=== PATIENT | female | born 1955 | race African-American/Black ===

== ENCOUNTER 2018-02-11 12:20 | Inpatient (IN) | payer MEDICARE, MEDICAID ==
[2018-02-11] MEDS ORDERED: NORMAL SALINE 1000 ML 1,000 ML IV ONE (13:06)
[2018-02-11] MEDS ORDERED: ONDANSETRON HCL INJ/PF 4 MG/2 ML SDV IV ONE (13:06)
[2018-02-11] MEDS ORDERED: FENTANYL CITRATE INJ/PF 100 MCG/2 ML AMPUL IV ONE (13:06)
--- NOTE | 2018-02-11 13:10 | ER Document Report ---
ED Medical Screen (RME) - General Chief Complaint: Nausea/Vomiting Stated Complaint: VOMITING, NAUSEA Time Seen by Provider: 02/11/18 13:01 Notes: RAPID MEDICAL EVALUATION DISCLOSURE I have seen this patient as part of a Rapid Medical Evaluation and, if applicable, placed any initially appropriate orders. The patient will be seen and fully evaluated, including a full history and physical exam, by a provider ( in Main ED or Fast Track) when a room becomes available. 62-year-old female PMH hiatal hernia status post Jigna fundoplication with subsequent revisions several years ago as well as recent upper endoscopy (with esophageal dilatation and findings of Schatzki ring by [facility] in [place]) here with complaints of diffuse abdominal pain nausea vomiting diarrhea over the past 1 week. She has been unable to keep anything down. She is also had chest pain (worse with exertion, improved with laying flat) shortness of breath that has been ongoing for many many years and is unchanged from baseline. Denies any prior history of bowel obstruction. EXAM CTAB Moderately tachycardic, regular rhythm Diffuse moderate TTP all quadrants No rigidity distention TRAVEL OUTSIDE OF THE [place] IN LAST 30 DAYS: No Past Medical History - Social History Chew tobacco use (# tins/day): No Frequency of alcohol use: None Drug Abuse: None - Past Medical History Cardiac Medical History: Reports: Hx Hypertension Neurological Medical History: Reports: Hx Migraine, Hx Seizures Renal/ Medical History: Denies: Hx Peritoneal Dialysis Past Surgical History: Reports: Hx Abdominal Surgery Physical Exam - Vital signs Vitals: Temp Pulse Resp BP Pulse Ox 97.8 F 139 H 28 H 107/74 96 02/11/18 12:28 02/11/18 12:28 02/11/18 12:28 02/11/18 12:28 02/11/18 12:28 Course - Vital Signs Vital signs: Temp Pulse Resp BP Pulse Ox 97.8 F 139 H 28 H 107/74 96 02/11/18 12:28 02/11/18 12:28 02/11/18 12:28 02/11/18 12:28 02/11/18 12:28
[2018-02-11] MEDS ORDERED: PROMETHAZINE HCL INJ 25 MG/1 ML VIAL ONE (13:37)
[2018-02-11 13:52] LABS: ABSOLUTE LYMPHOCYTES (AUTO) 1.3 10^3/uL (0.5-4.7); ABSOLUTE MONOCYTES (AUTO) 0.5 10^3/uL (0.1-1.4); ABSOLUTE NEUT (AUTO) 2.8 10^3/uL (1.7-8.2); BASOPHILS % (AUTO) 0.7 % (0-2); EOSINOPHILS % (AUTO) 0.3 % (0-6); HEMATOCRIT 46.2 % (36.0-47.0); HEMOGLOBIN 16.1 g/dL (12.0-15.5); LYMPHOCYTES % (AUTO) 28.5 % (13-45); MEAN CORPUSCULAR HEMOGLOBIN 29.2 pg (27.0-33.4); MEAN CORPUSCULAR HGB CONC 34.8 g/dL (32.0-36.0); MEAN CORPUSCULAR VOLUME 84 fl (80-97); MONOCYTES % (AUTO) 10.6 % (3-13); PLATELET COUNT 325 10^3/uL (150-450); RED CELL DISTRIBUTION WIDTH 16.1 % (11.5-14.0); SEGMENTED NEUTROPHILS % (AUTO) 59.9 % (42-78); TOTAL CELLS COUNTED % (AUTO) 100 %; WHITE BLOOD COUNT 4.7 10^3/uL (4.0-10.5)
[2018-02-11] MEDS ORDERED: PROMETHAZINE HCL INJ 50 MG/1 ML VIAL IM ONE (13:52)
[2018-02-11] MEDS ORDERED: HYDROMORPHONE HCL INJ/PF 2 MG/ML AMPULE IV ONE ×2 (14:08→18:54)
[2018-02-11] MEDS ORDERED: METOCLOPRAMIDE HCL INJ/PF 10 MG/2 ML SDV IV ONE ×2 (14:08→19:05)
[2018-02-11 14:43] LABS: APPEARANCE,URINE SLIGHTLY-CLOUDY; BILIRUBIN,URINE NEGATIVE (NEGATIVE); COLOR,URINE YELLOW; GLUCOSE, URINE NEGATIVE (NEGATIVE); KETONES,URINE NEGATIVE (NEGATIVE); LEUKOCYTE ESTERASE,URINE MODERATE (NEGATIVE); NITRITE,URINE NEGATIVE (NEGATIVE); PROTEIN,URINE NEGATIVE (NEGATIVE); URINE SPECIFIC GRAVITY 1.012; UROBILINOGEN,URINE NEGATIVE mg/dL (<2.0)
[2018-02-11] MEDS ORDERED: CEFTRIAXONE INJ 1000 MG VIAL IV ONE (14:46)
[2018-02-11 16:19] LABS: ALANINE AMINOTRANSFERASE 17 U/L (9-52); ALBUMIN 3.8 g/dL (3.5-5.0); ALKALINE PHOSPHATASE 57 U/L (38-126); ANION GAP 14 (5-19); ASPARTATE AMINO TRANSFERASE 21 U/L (14-36); BILIRUBIN,DIRECT 0.4 mg/dL (0.0-0.4); BILIRUBIN,TOTAL 0.6 mg/dL (0.2-1.3); BLOOD UREA NITROGEN 37 mg/dL (7-20); CALCIUM 9.6 mg/dL (8.4-10.2); CARBON DIOXIDE 25 mmol/L (22-30); CHLORIDE 106 mmol/L (98-107); GLUCOSE 89 mg/dL (75-110); LIPASE 335.6 U/L (23-300); POTASSIUM 4.1 mmol/L (3.6-5.0); SODIUM 145.2 mmol/L (137-145); TOTAL PROTEIN 6.7 g/dL (6.3-8.2)
--- NOTE | 2018-02-11 17:23 | RADIOLOGY REPORT (SQ) ---
EXAM DESCRIPTION: CT HEAD WITHOUT COMPLETED DATE/TIME: 02/11/2018 5:07 pm REASON FOR STUDY: headache COMPARISON: None. TECHNIQUE: Axial images acquired through the brain without intravenous contrast. Images reviewed wi th bone, brain and subdural windows. Images stored on PACS. All CT scanners at this facility use dose modulation, iterative reconstruction, and/or weight based d osing when appropriate to reduce radiation dose to as low as reasonably achievable (ALARA). [facility]: Dose Right [facility]: CareDose [facility]: Dose Right [facility]: Teradose 4D [facility]: Enjoyor RADIATION DOSE: mGy. LIMITATIONS: None. FINDINGS: VENTRICLES: Normal size and contour. CEREBRUM: No masses. No hemorrhage. No midline shift. No evidence for acute infarction. Normal gra y/white matter differentiation. No areas of low density in the white matter. CEREBELLUM: No masses. No hemorrhage. No alteration of density. No evidence for acute infarction. EXTRAAXIAL SPACES: No fluid collections. No masses. ORBITS AND GLOBE: No intra- or extraconal masses. Normal contour of globe without masses. CALVARIUM: No fracture. PARANASAL SINUSES: No fluid or mucosal thickening. SOFT TISSUES: No mass or hematoma. OTHER: No other significant finding. IMPRESSION: NORMAL BRAIN CT WITHOUT CONTRAST. EVIDENCE OF ACUTE STROKE: NO. COMMENT: Quality ID # [id number]: Final reports with documentation of one or more dose reduction techniques (e.g., Automated exposure control, adjustment of the mA and/or kV according to patient size, use of iterative reconstruction technique) TECHNICAL DOCUMENTATION: JOB ID: [id number] [employer]- All Rights Reserved Reading location - IP/workstation name: [email or web address]
--- NOTE | 2018-02-11 17:38 | RADIOLOGY REPORT (SQ) ---
EXAM DESCRIPTION: CT ABD/PELVIS WITH IV ORAL COMPLETED DATE/TIME: 02/11/2018 5:14 pm REASON FOR STUDY: n/v/d abd pain; eval obstruction colitis etc COMPARISON: None. TECHNIQUE: CT scan of the abdomen and pelvis performed using helical scanning technique with dynamic intravenous contrast injection. No oral contrast. Images reviewed with lung, soft tissue, and bone windows. Reconstructed coronal and sagittal MPR images reviewed. Delayed images for evaluation of the urinary system also acquired. All images stored on PACS. All CT scanners at this facility use dose modulation, iterative reconstruction, and/or weight based d osing when appropriate to reduce radiation dose to as low as reasonably achievable (ALARA). [facility]: Dose Right [facility]: CareDose [facility]: Dose Right [facility]: Teradose 4D [facility]: [employer] CONTRAST TYPE AND DOSE: 46 mL Isovue 370 RENAL FUNCTION: Creatinine 1.44 RADIATION DOSE: . LIMITATIONS: None. FINDINGS: LOWER CHEST: There is some mild thickening of the pericardium which I cannot exclude is a small pericardial effusion. No nodules or infiltrates. Radiopaque density is identified at the the G E junction and I am uncertain as to whether this or related to previous surgery or represents an bakari sted substance. LIVER: Normal size. No masses. Prominent intrahepatic bile ducts are identified presumably related t o the patient being in post cholecystectomy. SPLEEN: Normal size. No focal lesions. PANCREAS: No masses. No significant calcifications. No adjacent inflammation or peripancreatic fluid collections. Pancreatic duct not dilated. GALLBLADDER: Status post cholecystectomy. ADRENAL GLANDS: No significant masses or asymmetry. RIGHT KIDNEY AND URETER: No solid masses. No significant calcifications. No hydronephrosis or hyd roureter. LEFT KIDNEY AND URETER: No solid masses. No significant calcifications. No hydronephrosis or hydr oureter. AORTA AND VESSELS: No aneurysm. No dissection. Renal arteries, SMA, celiac without stenosis. RETROPERITONEUM: No retroperitoneal adenopathy, hemorrhage or masses. BOWEL AND PERITONEAL CAVITY: There is some thickening of the longoria of the colon extending from the le hanane of the splenic flexure to the rectum which may be in part related to its non distended state spears carla the possibility of a colitis should be considered. No free fluid or peritoneal masses. APPENDIX: Status post appendectomy PELVIS: No mass. No free fluid. Normal bladder. ABDOMINAL WALL: No masses. No hernias. BONES: No significant or acute findings. OTHER: No other significant finding. IMPRESSION: There is thickening of the longoria of the colon extending from the level of the splenic fl exure to the level of the rectum which may be in part related to its non distended state however the possibility of a colitis should be considered. Other findings as noted above TECHNICAL DOCUMENTATION: JOB ID: [id number] Quality ID # [id number]: Final reports with documentation of one or more dose reduction techniques (e.g., Au tomated exposure control, adjustment of the mA and/or kV according to patient size, use of iterative reconstruction technique) 2010 [employer]- All Rights Reserved Reading location - IP/workstation name: [email or web address]
[2018-02-11] MEDS ORDERED: CIPROFLOXACIN 200 MG/D5W RTU 200 MG/100 ML RTUPB IV ONE (18:46)
[2018-02-11] MEDS ORDERED: METRONIDAZOLE 500 MG/NS RTU 100 ML IV ONE (18:46)
--- NOTE | 2018-02-11 18:46 | ER Document Report ---
ED General - General Chief Complaint: Nausea/Vomiting Stated Complaint: VOMITING, NAUSEA Time Seen by Provider: 02/11/18 13:01 Mode of Arrival: Ambulatory Information source: Patient Notes: 62-year-old female presents with complaints of nausea vomiting diarrhea. Patient notes decreased oral intake generalized abdominal burning sensation TRAVEL OUTSIDE OF THE [place] IN LAST 30 DAYS: No - HPI Onset: Last week Onset/Duration: Persistent Quality of pain: Burning Severity: Moderate Pain Level: 2 Associated symptoms: Diarrhea, Nausea, Vomiting Exacerbated by: Food Relieved by: Denies Similar symptoms previously: No Recently seen / treated by doctor: No - Related Data Allergies/Adverse Reactions: butorphanol [From Stadol] Allergy (Verified 02/11/18 13:08) Past Medical History - Social History Smoking Status: Current Some Day Smoker Cigarette use (# per day): Yes Chew tobacco use (# tins/day): No Smoking Education Provided: No Frequency of alcohol use: None Drug Abuse: None Family History: Reviewed & Not Pertinent Patient has suicidal ideation: No Patient has homicidal ideation: No - Past Medical History Cardiac Medical History: Reports: Hx Hypertension Neurological Medical History: Reports: Hx Migraine, Hx Seizures Renal/ Medical History: Denies: Hx Peritoneal Dialysis Past Surgical History: Reports: Hx Abdominal Surgery Review of Systems - Review of Systems Notes: REVIEW OF SYSTEMS: CONSTITUTIONAL : Denies fever, chills, or sweats. Denies recent illness. EENT: Denies eye, ear, throat, or mouth pain or symptoms. Denies nasal or sinus congestion or discharge. Denies throat, tongue, or mouth swelling or difficulty swallowing. CARDIOVASCULAR: Denies chest pain. Denies palpitations or racing or irregular heart beat. Denies ankle edema. RESPIRATORY: Denies cough, cold, or chest congestion. Denies shortness of breath, difficulty breathing, or wheezing. GASTROINTESTINAL: Admits to abdominal pain nausea vomiting diarrhea GENITOURINARY: Denies difficulty urinating, painful urination, burning, frequency, blood in urine, or discharge. FEMALE GENITOURINARY: Denies vaginal bleeding, heavy or abnormal periods, irregular periods. Denies vaginal discharge or odor. MUSCULOSKELETAL: Denies back or neck pain or stiffness. Denies joint pain or swelling. SKIN: Denies rash, lesions or sores. HEMATOLOGIC : Denies easy bruising or bleeding. LYMPHATIC: Denies swollen, enlarged glands. NEUROLOGICAL: Denies confusion or altered mental status. Denies passing out or loss of consciousness. Denies dizziness or lightheadedness. Denies headache. Denies weakness or paralysis or loss of use of either side. Denies problems with gait or speech. Denies sensory loss, numbness, or tingling. Denies seizures. PSYCHIATRIC: Denies anxiety or stress. Denies depression, suicidal ideation, or homicidal ideation. ALL OTHER SYSTEMS REVIEWED AND NEGATIVE. PHYSICAL EXAMINATION: GENERAL: Cachectic female HEAD: Atraumatic, normocephalic. EYES: Pupils equal round and reactive to light, extraocular movements intact, conjunctiva are normal. ENT: Nares patent, oropharynx clear without exudates. Moist mucous membranes. NECK: Normal range of motion, supple without lymphadenopathy LUNGS: Breath sounds clear to auscultation bilaterally and equal. No wheezes rales or rhonchi. HEART: Tachycardic ABDOMEN: Soft, generalized tenderness Female : deferred Musculoskeletal: Normal range of motion, no pitting or edema. No cyanosis. NEUROLOGICAL: Cranial nerves grossly intact. Normal speech, normal gait. Normal sensory, motor exams PSYCH: Normal mood, normal affect. SKIN: Warm, Dry, normal turgor, no rashes or lesions noted. Dictation was performed using [employer] voice recognition software Physical Exam - Vital signs Vitals: Temp Pulse Resp BP Pulse Ox 97.8 F 139 H 28 H 107/74 96 02/11/18 12:28 02/11/18 12:28 02/11/18 12:28 02/11/18 12:28 02/11/18 12:28 Course - Re-evaluation Re-evalutation: 02/11/18 19:13 Patient's presentation is most consistent with colitis, she was quite tachycardic initially with IV fluids tachycardia resolved. Repeat vital signs noted she was normotensive, and overall well-appearing. Patient was given IV antibiotics initially for a UTI but CT abdomen pelvis with oral and IV contrast does note colitis therefore patient will be started on Cipro and Flagyl as well - Vital Signs Vital signs: Temp Pulse Resp BP Pulse Ox 97.8 F 139 H 16 118/91 H 98 02/11/18 12:28 02/11/18 12:28 02/11/18 14:01 02/11/18 14:01 02/11/18 14:01 - Laboratory Result Diagrams: 02/11/18 13:42 02/11/18 15:40 Laboratory results interpreted by me: 02/11/18 02/11/18 02/11/18 12:35 13:42 15:40 RBC 5.50 H Hgb 16.1 H RDW 16.1 H Sodium 145.2 H BUN 37 H Creatinine 1.44 H Est GFR ( Amer) 44 L Est GFR (Non-Af Amer) 37 L Lipase 335.6 H Urine Blood LARGE H Ur Leukocyte Esterase MODERATE H Critical Care Note - Critical Care Note Total time excluding time spent on procedures (mins): 45 Comments: 45 minutes of critical care time spent in direct contact evaluating and reevaluating the patient, treating symptoms, reviewing labs and studies and speaking with family and consultants excluding any procedures Discharge - Discharge Clinical Impression: Colitis, Dehydration Sepsis Qualifiers: Sepsis type: sepsis due to unspecified organism Qualified Code(s): A41.9 - Sepsis, unspecified organism Condition: Fair Disposition: ADMITTED INPATIENT Admitting Provider: [facility] Unit Admitted: Medical Floor Referrals: GRAEME BULLOCK MD [Primary Care Provider] - Follow up as needed
--- NOTE | 2018-02-11 21:12 | EKG REPORT ---
SEVERITY:- ABNORMAL ECG - SINUS TACHYCARDIA PROBABLE LVH WITH SECONDARY REPOL ABNRM : Confirmed by: Marixa Puentes 11-Feb-2018 21:11:19
[2018-02-11] MEDS ORDERED: (PENDING PHARMACY ID) (Tapentadol Hcl [Nucynta] 100 MG) PO PRN (22:10)
[2018-02-11] MEDS ORDERED: PROMETHAZINE HCL 25 MG TABLET PO PRN (22:10)
[2018-02-11] MEDS ORDERED: DIAZEPAM 5 MG TABLET PO ONE (23:15)
[2018-02-11] MEDS ORDERED: MEGESTROL ACETATE 20 MG TABLET PO ONE (23:15)
[2018-02-11] MEDS ORDERED: LOSARTAN POTASSIUM 50 MG TABLET PO ONE (23:15)
[2018-02-11] MEDS ORDERED: LANSOPRAZOLE 15 MG TAB.RAP.DR PO ONE (23:15)
[2018-02-11] MEDS ORDERED: LACOSAMIDE 100 MG TABLET PO ONE (23:15)
[2018-02-11] MEDS ORDERED: LEVETIRACETAM 500 MG TABLET PO ONE (23:15)
[2018-02-12] MEDS: HYDROMORPHONE HCL INJ/PF 2 MG/ML AMPULE IV PRN ×6 (00:26→23:06)
[2018-02-12] MEDS: METRONIDAZOLE 500 MG/NS RTU 100 ML IV SCH ×5 (00:28→23:51)
[2018-02-12] MEDS ORDERED: TIAGABINE HCL 4 MG TABLET PO ONE (02:00)
[2018-02-12 05:13] LABS: ABSOLUTE BASOPHILS # (AUTO) 0.1 10^3/uL (0.0-0.2); ABSOLUTE EOSINOPHILS # (AUTO) 0.1 10^3/uL (0.0-0.6); ABSOLUTE LYMPHOCYTES (AUTO) 1.9 10^3/uL (0.5-4.7); ABSOLUTE MONOCYTES (AUTO) 0.5 10^3/uL (0.1-1.4); ABSOLUTE NEUT (AUTO) 2.5 10^3/uL (1.7-8.2); BASOPHILS % (AUTO) 1.1 % (0-2); EOSINOPHILS % (AUTO) 1.4 % (0-6); HEMATOCRIT 36.2 % (36.0-47.0); LYMPHOCYTES % (AUTO) 38.6 % (13-45); MEAN CORPUSCULAR HGB CONC 34.7 g/dL (32.0-36.0); MEAN CORPUSCULAR VOLUME 84 fl (80-97); MONOCYTES % (AUTO) 9.2 % (3-13); PLATELET COUNT 202 10^3/uL (150-450); RED BLOOD COUNT 4.34 10^6/uL (3.72-5.28); RED CELL DISTRIBUTION WIDTH 15.9 % (11.5-14.0); SEGMENTED NEUTROPHILS % (AUTO) 49.7 % (42-78); TOTAL CELLS COUNTED % (AUTO) 100 %
[2018-02-12 05:21] LABS: HEMOGLOBIN 12.6 g/dL (12.0-15.5)
[2018-02-12 05:31] LABS: ANION GAP 12 (5-19); BLOOD UREA NITROGEN 28 mg/dL (7-20); CALCIUM 8.8 mg/dL (8.4-10.2); CARBON DIOXIDE 23 mmol/L (22-30); CHLORIDE 109 mmol/L (98-107); GLUCOSE 92 mg/dL (75-110); POTASSIUM 3.2 mmol/L (3.6-5.0); SODIUM 143.9 mmol/L (137-145)
[2018-02-12] MEDS: HEPARIN SOD (PORCINE) 5,000 UNIT/ML 1 ML SYRINGE SUBCUT SCH ×3 (05:36→22:51)
[2018-02-12] MEDS: CIPROFLOXACIN 400 MG/D5W RTU 400 MG/200 ML RTUPB IV SCH ×2 (06:03→17:27)
[2018-02-12] MEDS: PROMETHAZINE HCL 25 MG TABLET PO PRN (08:30)
[2018-02-12] MEDS: LEVETIRACETAM 500 MG TABLET PO SCH ×2 (09:31→22:50)
[2018-02-12] MEDS: LANSOPRAZOLE 15 MG TAB.RAP.DR PO SCH (09:31)
[2018-02-12] MEDS: LOSARTAN POTASSIUM 50 MG TABLET PO SCH (09:31)
[2018-02-12] MEDS: LACOSAMIDE 100 MG TABLET PO SCH ×2 (09:31→22:50)
[2018-02-12] MEDS: TIAGABINE HCL 4 MG TABLET PO SCH ×3 (09:32→17:34)
[2018-02-12] MEDS: MEGESTROL ACETATE 20 MG TABLET PO SCH ×2 (09:32→17:34)
[2018-02-12] MEDS ORDERED: POTASSIUM CHLORIDE 20 MEQ/15 ML UDCUP PO ONE (10:00)
[2018-02-12] MEDS ORDERED: POTASSIUM CHLORIDE 10 MEQ TABLET.SA PO ONE (16:00)
--- NOTE | 2018-02-12 19:46 | PDOC H&P ---
History of Present Illness Admission Date/PCP: 02/12/18 18:24 GRAEME BULLOCK MD History of Present Illness: ERNESTO ELIZONDO is a 62 year old female, She has a history of seizure, she came to the emergency room for evaluation of vomiting for the last 2-3 days, she developed diarrhea in the last 24 hours with associated abdominal discomfort she was seen in the ED, CT scan of the abdomen and pelvis with IV contrast was done, the CT scan showed thickening of the longoria of the colon extending from the level of the splenic flexure, colitis was implied as the cause of the thickening of the longoria of the colon extending from the level of the splenic flexure to the rectum. She has also lost a lot of weight, she looks very thin, the body mass index is 16 suggesting severe underweight/malnutrition.The urinalysis is grossly abnormal suggesting UTI Past Medical History Cardiac Medical History: Reports: Hypertension Neurological Medical History: Reports: Migraine, Seizures Psychiatric Medical History: Denies: Depression Social History Smoking Status: Current Some Day Smoker Family History Family History: Reviewed & Not Pertinent Parental Family History Reviewed: Yes Children Family History Reviewed: Yes Sibling(s) Family History Reviewed.: Yes Medication/Allergy Home Medications: Diazepam [Valium 5 mg Tablet] 5 mg PO QHS 02/11/18 Lacosamide [Vimpat 100 mg Tablet] 100 mg PO Q12 02/11/18 Levetiracetam [Keppra 500 mg Tablet] 1,000 mg PO Q12 02/11/18 Losartan Potassium [Cozaar 100 mg Tablet] 100 mg PO DAILY 02/11/18 Megestrol Acetate [Megace 20 Mg Tablet] 20 mg PO BID 02/11/18 Omeprazole 20 mg PO DAILY 02/11/18 Promethazine HCl [Phenergan 25 mg Tablet] 25 mg PO Q6HP PRN 02/11/18 Quetiapine Fumarate [Seroquel] 200 mg PO Q12 02/11/18 Tapentadol HCl [Nucynta] 100 mg PO Q4HP PRN 02/11/18 Tiagabine HCl [Gabitril] 2 mg PO TID 02/11/18 Allergies/Adverse Reactions: butorphanol [From Stadol] Allergy (Verified 02/11/18 13:08) Review of Systems Constitutional: PRESENT: headache(s). ABSENT: chills, fever(s), weight gain, weight loss Eyes: ABSENT: visual disturbances Ears: ABSENT: hearing changes Cardiovascular: ABSENT: chest pain, dyspnea on exertion, edema, orthropnea, palpitations Respiratory: ABSENT: cough, hemoptysis Gastrointestinal: PRESENT: diarrhea, vomiting. ABSENT: abdominal pain, constipation, hematemesis, hematochezia, nausea Genitourinary: ABSENT: dysuria, hematuria Musculoskeletal: ABSENT: joint swelling Integumentary: ABSENT: rash, wounds Neurological: ABSENT: abnormal gait, abnormal speech, confusion, dizziness, focal weakness, syncope Psychiatric: ABSENT: anxiety, depression, homidical ideation, suicidal ideation Endocrine: ABSENT: cold intolerance, heat intolerance, menstrual abnormalities, polydipsia, polyuria Hematologic/Lymphatic: ABSENT: easy bleeding, easy bruising, lymphadenopathy Physical Exam Vital Signs: Temp Pulse Resp BP Pulse Ox 98.1 F 90 12 108/65 100 02/12/18 15:19 02/12/18 15:19 02/12/18 15:19 02/12/18 15:19 02/12/18 15:19 General appearance: PRESENT: thin Eye exam: PRESENT: PERRLA Ear exam: PRESENT: normal external ear exam Mouth exam: PRESENT: moist, tongue midline Neck exam: PRESENT: full ROM Respiratory exam: PRESENT: clear to auscultation madhu Cardiovascular exam: PRESENT: RRR, +S1, +S2 GI/Abdominal exam: PRESENT: normal bowel sounds, soft Rectal exam: PRESENT: deferred Neurological exam: PRESENT: alert, awake, oriented to person, oriented to place , oriented to time, oriented to situation, CN II-XII grossly intact. ABSENT: motor sensory deficit Skin exam: PRESENT: dry, intact, warm Results Impressions: Abdomen/Pelvis CT 02/11/18 00:00 IMPRESSION: There is thickening of the longoria of the colon extending from the level of the splenic flexure to the level of the rectum which may be in part related to its non distended state however the possibility of a colitis should be considered. Other findings as noted above Head CT 02/11/18 14:22 IMPRESSION: NORMAL BRAIN CT WITHOUT CONTRAST. EVIDENCE OF ACUTE STROKE: NO. Assessment & Plan - Diagnosis (1) Colitis Is this a current diagnosis for this admission?: Yes Plan: The CT scan suggest colitis, the colon involved is quite extensive, she will be empirically be treated with IV Flagyl and Cipro consultation will be requested from GI (2) Undernutrition Is this a current diagnosis for this admission?: Yes (3) Dehydration Is this a current diagnosis for this admission?: Yes Plan: Start hydration
--- NOTE | 2018-02-12 19:52 | PDOC PROGRESS REPORT ---
Subjective Progress Note for:: 02/12/18 Subjective:: She was seen by the bedside, consultation will be requested from GI, concerned about the weight loss with the extensive thickening of the colonic wall, may need colonoscopy Reason For Visit: COLITIS Physical Exam Vital Signs: Temp Pulse Resp BP Pulse Ox 98.1 F 90 12 108/65 100 02/12/18 15:19 02/12/18 15:19 02/12/18 15:19 02/12/18 15:19 02/12/18 15:19 General appearance: PRESENT: no acute distress Eye exam: PRESENT: PERRLA Respiratory exam: PRESENT: clear to auscultation madhu Cardiovascular exam: PRESENT: +S1, +S2 GI/Abdominal exam: PRESENT: soft Neurological exam: PRESENT: alert Results Impressions: Abdomen/Pelvis CT 02/11/18 00:00 IMPRESSION: There is thickening of the longoria of the colon extending from the level of the splenic flexure to the level of the rectum which may be in part related to its non distended state however the possibility of a colitis should be considered. Other findings as noted above Head CT 02/11/18 14:22 IMPRESSION: NORMAL BRAIN CT WITHOUT CONTRAST. EVIDENCE OF ACUTE STROKE: NO. Assessment & Plan - Diagnosis (1) Colitis Is this a current diagnosis for this admission?: Yes (2) Undernutrition Is this a current diagnosis for this admission?: Yes (3) Dehydration Is this a current diagnosis for this admission?: Yes - Plan Summary Plan Summary: Consultation obtained from GI
[2018-02-12] MEDS: DIAZEPAM 5 MG TABLET PO SCH (22:49)
[2018-02-13] MEDS: HYDROMORPHONE HCL INJ/PF 2 MG/ML AMPULE IV PRN ×3 (04:15→20:29)
[2018-02-13] MEDS: CIPROFLOXACIN 400 MG/D5W RTU 400 MG/200 ML RTUPB IV SCH ×2 (05:13→17:21)
[2018-02-13 05:17] LABS: ABSOLUTE BASOPHILS # (AUTO) 0.1 10^3/uL (0.0-0.2); ABSOLUTE EOSINOPHILS # (AUTO) 0.2 10^3/uL (0.0-0.6); ABSOLUTE LYMPHOCYTES (AUTO) 1.6 10^3/uL (0.5-4.7); ABSOLUTE MONOCYTES (AUTO) 0.5 10^3/uL (0.1-1.4); ABSOLUTE NEUT (AUTO) 3.1 10^3/uL (1.7-8.2); HEMATOCRIT 34.4 % (36.0-47.0); LYMPHOCYTES % (AUTO) 29.7 % (13-45); MEAN CORPUSCULAR VOLUME 83 fl (80-97); MONOCYTES % (AUTO) 8.5 % (3-13); PLATELET COUNT 198 10^3/uL (150-450); RED BLOOD COUNT 4.16 10^6/uL (3.72-5.28); RED CELL DISTRIBUTION WIDTH 15.8 % (11.5-14.0); SEGMENTED NEUTROPHILS % (AUTO) 57.8 % (42-78); TOTAL CELLS COUNTED % (AUTO) 100 %; WHITE BLOOD COUNT 5.3 10^3/uL (4.0-10.5)
[2018-02-13 05:42] LABS: ANION GAP 11 (5-19); BLOOD UREA NITROGEN 16 mg/dL (7-20); CALCIUM 9.2 mg/dL (8.4-10.2); CARBON DIOXIDE 18 mmol/L (22-30); CHLORIDE 114 mmol/L (98-107); GLUCOSE 85 mg/dL (75-110); POTASSIUM 3.9 mmol/L (3.6-5.0); SODIUM 143.1 mmol/L (137-145)
[2018-02-13] MEDS: METRONIDAZOLE 500 MG/NS RTU 100 ML IV SCH ×3 (06:22→17:22)
[2018-02-13] MEDS: HEPARIN SOD (PORCINE) 5,000 UNIT/ML 1 ML SYRINGE SUBCUT SCH ×3 (06:29→21:51)
[2018-02-13] MEDS: TIAGABINE HCL 4 MG TABLET PO SCH ×3 (10:13→17:23)
[2018-02-13] MEDS: POTASSIUM CHLORIDE 10 MEQ TABLET.SA PO SCH (10:13)
[2018-02-13] MEDS: LANSOPRAZOLE 15 MG TAB.RAP.DR PO SCH (10:13)
[2018-02-13] MEDS: LOSARTAN POTASSIUM 50 MG TABLET PO SCH (10:13)
[2018-02-13] MEDS: MEGESTROL ACETATE 20 MG TABLET PO SCH ×2 (10:13→17:23)
[2018-02-13] MEDS: LACOSAMIDE 100 MG TABLET PO SCH ×2 (10:13→23:29)
[2018-02-13] MEDS: LEVETIRACETAM 500 MG TABLET PO SCH ×2 (10:13→23:29)
[2018-02-13] MEDS: NORMAL SALINE 1000 ML 1,000 ML IV PRN (11:27)
--- NOTE | 2018-02-13 13:49 | PDOC CONSULTATION ---
Consultation Consult Date: 02/13/18 Attending physician:: [facility] Consult reason:: weight loss. nausea and vomiting. chronic pain. change in bowel habits History of Present Illness Admission Date/PCP: 02/12/18 18:24 GRAEME BULLOCK MD History of Present Illness: ERNESTO ELIZONDO is a 62 year old female I have been asked to see this patient by Dr Bonilla. patient has chronic pain and when I first walked into the room she asked if I was her new pain doctor. from the GI standpoint, has been unable to eat has nausea and vomiting patient has lost over 50 pounds also having diarrhea patient is requesting stronger pain medication since is not lasting. No blood in her stools patient ? has colitis will need GI work up to include EGD and colonoscopy will need Propofol sedation Past Medical History Cardiac Medical History: Reports: Hypertension Neurological Medical History: Reports: Migraine, Seizures Psychiatric Medical History: Denies: Depression Social History Smoking Status: Current Some Day Smoker Family History Family History: Reviewed & Not Pertinent Parental Family History Reviewed: Yes Children Family History Reviewed: Unknown Sibling(s) Family History Reviewed.: Unknown Medication/Allergy Home Medications: Diazepam [Valium 5 mg Tablet] 5 mg PO QHS 02/11/18 Lacosamide [Vimpat 100 mg Tablet] 100 mg PO Q12 02/11/18 Levetiracetam [Keppra 500 mg Tablet] 1,000 mg PO Q12 02/11/18 Losartan Potassium [Cozaar 100 mg Tablet] 100 mg PO DAILY 02/11/18 Megestrol Acetate [Megace 20 Mg Tablet] 20 mg PO BID 02/11/18 Omeprazole 20 mg PO DAILY 02/11/18 Promethazine HCl [Phenergan 25 mg Tablet] 25 mg PO Q6HP PRN 02/11/18 Quetiapine Fumarate [Seroquel] 200 mg PO Q12 02/11/18 Tapentadol HCl [Nucynta] 100 mg PO Q4HP PRN 02/11/18 Tiagabine HCl [Gabitril] 2 mg PO TID 02/11/18 Allergies/Adverse Reactions: butorphanol [From Stadol] Allergy (Verified 02/11/18 13:08) Review of Systems Constitutional: PRESENT: weakness. ABSENT: fever(s), headache(s), night sweats Eyes: ABSENT: visual disturbances Ears: ABSENT: hearing changes Cardiovascular: ABSENT: chest pain, orthropnea Respiratory: ABSENT: dyspnea, hemoptysis Gastrointestinal: PRESENT: diarrhea, nausea, vomiting. ABSENT: dysphagia Genitourinary: PRESENT: hematuria. ABSENT: dysuria Musculoskeletal: ABSENT: deformity, joint swelling Neurological: ABSENT: syncope, tingling, tremor(s), vertigo Endocrine: ABSENT: polydipsia, polyphagia, polyuria Hematologic/Lymphatic: ABSENT: easy bruising Physical Exam Vital Signs: Temp Pulse Resp BP Pulse Ox 98.6 F 93 16 115/64 100 02/13/18 11:36 02/13/18 11:36 02/13/18 11:36 02/13/18 11:36 02/13/18 11:36 Intake & Output 02/12/18 02/13/18 02/14/18 06:59 06:59 06:59 Intake Total 325 Output Total 700 Balance -375 Weight 39.1 kg General appearance: PRESENT: cooperative, thin, well-developed Head exam: PRESENT: atraumatic, normocephalic Eye exam: PRESENT: EOMI, PERRLA. ABSENT: nystagmus, periorbital swelling, scleral icterus Mouth exam: PRESENT: moist Neck exam: ABSENT: meningismus, tenderness, thyromegaly Respiratory exam: PRESENT: symmetrical, unlabored. ABSENT: tachypnea, wheezes Cardiovascular exam: PRESENT: RRR, +S1, +S2 GI/Abdominal exam: PRESENT: soft. ABSENT: rebound, rigid, tenderness Extremities exam: ABSENT: joint swelling Musculoskeletal exam: PRESENT: full ROM Neurological exam: PRESENT: oriented to time, oriented to situation, CN II-XII grossly intact Focused psych exam: ABSENT: restlessness Skin exam: PRESENT: normal color. ABSENT: mottled, urticaria, vesicles Results Laboratory Results: 02/13/18 05:05 02/13/18 05:05 02/13/18 02/13/18 05:05 05:05 WBC 5.3 RBC 4.16 Hgb 12.0 Hct 34.4 L MCV 83 MCH 29.0 MCHC 35.0 RDW 15.8 H Plt Count 198 Seg Neutrophils % 57.8 Lymphocytes % 29.7 Monocytes % 8.5 Eosinophils % 3.0 Basophils % 1.0 Absolute Neutrophils 3.1 Absolute Lymphocytes 1.6 Absolute Monocytes 0.5 Absolute Eosinophils 0.2 Absolute Basophils 0.1 Sodium 143.1 Potassium 3.9 Chloride 114 H Carbon Dioxide 18 L Anion Gap 11 BUN 16 Creatinine 0.89 Est GFR ( Amer) > 60 Est GFR (Non-Af Amer) > 60 Glucose 85 Calcium 9.2 Impressions: Abdomen/Pelvis CT 02/11/18 00:00 IMPRESSION: There is thickening of the longoria of the colon extending from the level of the splenic flexure to the level of the rectum which may be in part related to its non distended state however the possibility of a colitis should be considered. Other findings as noted above Head CT 02/11/18 14:22 IMPRESSION: NORMAL BRAIN CT WITHOUT CONTRAST. EVIDENCE OF ACUTE STROKE: NO. Assessment & Plan - Diagnosis (1) Weight loss Plan: over 50 pound weight loss has not been able to eat, has nausea and vomiting patient states has early satiety will need EGD Risks, benefits and alternatives are explained to the patient in detail she is unsure if she can prep , however prep can be mixed in either Sprite or Nora Melodie (2) Nausea and vomiting Plan: patient will need to be exclude for peptic ulcer disease or possible gastric mass (3) Colitis Is this a current diagnosis for this admission?: Yes Plan: colonoscopy indicated for diarrhea and change in bowel habits will need biopsy rule out colitis Risks, benefits and alternatives discussed she will need Propofol sedation - Time Time Spent: 50 to 70 Minutes
--- NOTE | 2018-02-13 14:46 | Physician Advisory Note ---
Physician Advisor ProgressNote .: Pursuant to the plan for [facility], I have reviewed the medical record for this patient. Physician Advisor Statement: Excellent documentation of attending concerns about wt loss/colon thickening ( worrisome for extensive colitis, or ? perhaps malignancy?), which make continued hospitalization warranted. Please consider documenting, if you agree: 1. "underweight with protein-calorie malnutrition [state mild, mod, or severe] with BMI 15.8, ____[?wt loss, ?appetite loss, ]" - GI has documented pt's inability to eat, early satiety, loss of >50#. She was already on Megace prior to arrival. 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 2. "Acute Kidney Injury, now resolved" 3. "Acute hypernatremia, likely due to volume depletion" 4. Is there UTI present, or did U/A just suggest it and it is ruled out? Thanks! CK
[2018-02-13] MEDS ORDERED: MAGNESIUM CITRATE 296 ML BOTTLE PO ONE ×5 (15:00→22:00)
[2018-02-13] MEDS ORDERED: BISACODYL 5 MG TABEC PO ONE ×2 (20:00→22:00)
--- NOTE | 2018-02-13 21:17 | PDOC PROGRESS REPORT ---
Subjective Progress Note for:: 02/13/18 Subjective:: She was seen by GI scheduled for colonoscopy/EGD tomorrow morning Reason For Visit: COLITIS Physical Exam Vital Signs: Temp Pulse Resp BP Pulse Ox 98.1 F 64 14 115/63 94 02/13/18 19:54 02/13/18 19:54 02/13/18 19:54 02/13/18 19:54 02/13/18 19:54 Intake & Output 02/12/18 02/13/18 02/14/18 06:59 06:59 06:59 Intake Total 325 1866 Output Total 700 670 Balance -375 1196 Weight 39.1 kg General appearance: PRESENT: no acute distress Eye exam: PRESENT: PERRLA Respiratory exam: PRESENT: clear to auscultation madhu Cardiovascular exam: PRESENT: +S1, +S2 Neurological exam: PRESENT: alert Results Laboratory Results: 02/13/18 05:05 02/13/18 05:05 02/13/18 02/13/18 05:05 05:05 WBC 5.3 RBC 4.16 Hgb 12.0 Hct 34.4 L MCV 83 MCH 29.0 MCHC 35.0 RDW 15.8 H Plt Count 198 Seg Neutrophils % 57.8 Lymphocytes % 29.7 Monocytes % 8.5 Eosinophils % 3.0 Basophils % 1.0 Absolute Neutrophils 3.1 Absolute Lymphocytes 1.6 Absolute Monocytes 0.5 Absolute Eosinophils 0.2 Absolute Basophils 0.1 Sodium 143.1 Potassium 3.9 Chloride 114 H Carbon Dioxide 18 L Anion Gap 11 BUN 16 Creatinine 0.89 Est GFR ( Amer) > 60 Est GFR (Non-Af Amer) > 60 Glucose 85 Calcium 9.2 Impressions: Abdomen/Pelvis CT 02/11/18 00:00 IMPRESSION: There is thickening of the longoria of the colon extending from the level of the splenic flexure to the level of the rectum which may be in part related to its non distended state however the possibility of a colitis should be considered. Other findings as noted above Head CT 02/11/18 14:22 IMPRESSION: NORMAL BRAIN CT WITHOUT CONTRAST. EVIDENCE OF ACUTE STROKE: NO. Assessment & Plan - Diagnosis (1) Colitis Is this a current diagnosis for this admission?: Yes (2) Dehydration Is this a current diagnosis for this admission?: Yes (3) Protein-calorie malnutrition, moderate Is this a current diagnosis for this admission?: Yes
[2018-02-13] MEDS: PROMETHAZINE HCL 25 MG TABLET PO PRN (21:58)
[2018-02-13] MEDS: DIAZEPAM 5 MG TABLET PO SCH (23:29)
[2018-02-14] MEDS: METRONIDAZOLE 500 MG/NS RTU 100 ML IV SCH ×4 (00:17→17:06)
[2018-02-14] MEDS: HYDROMORPHONE HCL INJ/PF 2 MG/ML AMPULE IV PRN ×5 (00:41→17:10)
[2018-02-14] MEDS: NORMAL SALINE 1000 ML 1,000 ML IV PRN (04:54)
[2018-02-14] MEDS: HEPARIN SOD (PORCINE) 5,000 UNIT/ML 1 ML SYRINGE SUBCUT SCH ×2 (05:42→13:12)
[2018-02-14 06:19] LABS: ABSOLUTE BASOPHILS # (AUTO) 0.1 10^3/uL (0.0-0.2); ABSOLUTE EOSINOPHILS # (AUTO) 0.3 10^3/uL (0.0-0.6); ABSOLUTE LYMPHOCYTES (AUTO) 1.9 10^3/uL (0.5-4.7); ABSOLUTE MONOCYTES (AUTO) 0.5 10^3/uL (0.1-1.4); ABSOLUTE NEUT (AUTO) 1.9 10^3/uL (1.7-8.2); BASOPHILS % (AUTO) 1.3 % (0-2); HEMATOCRIT 30.4 % (36.0-47.0); HEMOGLOBIN 10.6 g/dL (12.0-15.5); LYMPHOCYTES % (AUTO) 40.4 % (13-45); MEAN CORPUSCULAR HEMOGLOBIN 28.5 pg (27.0-33.4); MEAN CORPUSCULAR HGB CONC 34.9 g/dL (32.0-36.0); MEAN CORPUSCULAR VOLUME 82 fl (80-97); MONOCYTES % (AUTO) 10.3 % (3-13); RED BLOOD COUNT 3.73 10^6/uL (3.72-5.28); RED CELL DISTRIBUTION WIDTH 15.6 % (11.5-14.0); TOTAL CELLS COUNTED % (AUTO) 100 %; WHITE BLOOD COUNT 4.6 10^3/uL (4.0-10.5)
[2018-02-14 06:34] LABS: PLATELET COUNT 190 10^3/uL (150-450)
[2018-02-14] MEDS: CIPROFLOXACIN 400 MG/D5W RTU 400 MG/200 ML RTUPB IV SCH ×2 (06:54→17:08)
[2018-02-14 08:58] LABS: ANION GAP 11 (5-19); BLOOD UREA NITROGEN 9 mg/dL (7-20); CALCIUM 8.6 mg/dL (8.4-10.2); CARBON DIOXIDE 20 mmol/L (22-30); CHLORIDE 109 mmol/L (98-107); GLUCOSE 91 mg/dL (75-110); POTASSIUM 3.1 mmol/L (3.6-5.0); SODIUM 140.4 mmol/L (137-145)
[2018-02-14] MEDS ORDERED: DIPHENHYDRAMINE HCL 50 MG/ML VIAL IV PRN (09:46)
[2018-02-14] MEDS: TIAGABINE HCL 4 MG TABLET PO SCH ×2 (10:05→13:12)
[2018-02-14] MEDS: LEVETIRACETAM 500 MG TABLET PO SCH (10:05)
[2018-02-14] MEDS: LACOSAMIDE 100 MG TABLET PO SCH (10:05)
[2018-02-14] MEDS: LOSARTAN POTASSIUM 50 MG TABLET PO SCH (10:10)
[2018-02-14] MEDS: LANSOPRAZOLE 15 MG TAB.RAP.DR PO SCH (10:10)
[2018-02-14] MEDS: MEGESTROL ACETATE 20 MG TABLET PO SCH (10:10)
[2018-02-14] MEDS: POTASSIUM CHLORIDE 10 MEQ TABLET.SA PO SCH (10:10)
[2018-02-14] MEDS ORDERED: MIDAZOLAM 2 MG/2 ML INJ ONE (11:22)
[2018-02-14] MEDS ORDERED: PROPOFOL INJ 200 MG/20 ML VIAL IV ONE (11:22)
--- NOTE | 2018-02-14 12:34 | Operative Report ---
Operative Report DATE OF SURGERY: 02/14/18 Operative Report: The risks, benefits and alternatives of the procedure including risks of bleeding, perforation requiring surgery are explained to the patient in detail and informed consent was obtained. Patient is brought back to the operating room and placed in a left, lateral decubital position. Timeout was called. Propofol medications administered. A rectal examination was done which did not reveal any masses, tears or fissures. An Olympus videoscope was inserted into the patient's rectum. The scope was then carefully advanced all the way to the cecum. Prep is not good. Solid fecal material is present. The cecum was identified by the anatomical landmarks of the ileocecal valve as well as the appendiceal office. Photodocumentation is obtained. The scope was then sequentially pulled back via the various segments of the colon including the ascending colon, hepatic flexure, transverse colon, splenic flexure, descending colon and finally into the rectosigmoid portions of the colon. Retroflexion maneuvers performed. The risks benefits and alternatives of the procedure explained to the patient in detail and informed consent is obtained.A GIF Olympus video scope was inserted into the patient's mouth and hypopharynx ,the esophagus is identified intubated and insufflated, the scope was then advanced through the esophagus stomach and duodenum, retroflexion maneuver is done, the esophagus stomach and first and second portions of the duodenum examined PREOPERATIVE DIAGNOSIS: Weight loss. Nausea vomiting. Change of bowel habits. Chronic pain syndrome POSTOPERATIVE DIAGNOSIS: Esophagitis, esophageal ulcer. Gastritis. Hiatal hernia. Right side colon Inflammation. Internal hemorrhoids. Poor prep. No obstructive lesion OPERATION: Colonoscopy with biopsy. EGD with biopsy SURGEON: [facility] ANESTHESIA: LMAC TISSUE REMOVED OR ALTERED: As noted above. COMPLICATIONS: None. ESTIMATED BLOOD LOSS: None. INTRAOPERATIVE FINDINGS: As noted above. PROCEDURE: Patient tolerated procedure well. No immediate postprocedure complications are noted. Patient is sent back to her room in good condition. Resume regular diet. Resume previous activity level. Resume all medications. Follow-up as outpatient. Wait on biopsies.
[2018-02-14] MEDS: PROMETHAZINE HCL 25 MG TABLET PO PRN (17:16)
[2018-02-14] MEDS ORDERED: POTASSIUM CHLORIDE 20 MEQ/15 ML UDCUP PO ONE (17:33)
[2018-02-14] MEDS ORDERED: METOCLOPRAMIDE HCL ORAL SOLN 10 MG/10 ML UDCUP PO ONE (19:00)
[2018-02-14] MEDS ORDERED: LIDOCAINE 2% VISCOUS SOLN 20 ML UDCUP PO ONE (19:00)
[2018-02-14] MEDS ORDERED: MAG HYDROX/AL HYDROX/SIMETH SUSP 30 ML UDCUP PO ONE (19:00)
[2018-02-14 19:05] VITALS: BP 111/53
--- NOTE | 2018-02-14 20:10 | PDOC DISCHARGE SUMMARY ---
General - Admit/Disc Date/PCP Admission Date/Primary Care Provider: 02/12/18 18:24 GRAEME BULLOCK MD Discharge Date: 02/14/18 - Discharge Diagnosis (1) Colitis Is this a current diagnosis for this admission?: Yes (2) Dehydration Is this a current diagnosis for this admission?: Yes (3) Protein-calorie malnutrition, moderate Is this a current diagnosis for this admission?: Yes (4) Esophageal ulcer Is this a current diagnosis for this admission?: Yes (5) Seizure disorder Is this a current diagnosis for this admission?: Yes - Additional Information Resuscitation Status: Full Code Discharge Diet: As Tolerated Discharge Activity: Activity As Tolerated, Balance Activity w/Rest Prescriptions: Esomeprazole Magnesium [Nexium] 40 mg PO DAILY #90 capsule. Megestrol Acetate [Megace 20 mg Tablet] 20 mg PO BID #60 tablet Home Medications: Diazepam [Valium 5 mg Tablet] 5 mg PO QHS 02/11/18 Lacosamide [Vimpat 100 mg Tablet] 100 mg PO Q12 02/11/18 Levetiracetam [Keppra 500 mg Tablet] 1,000 mg PO Q12 02/11/18 Losartan Potassium [Cozaar 100 mg Tablet] 100 mg PO DAILY 02/11/18 Quetiapine Fumarate [Seroquel] 200 mg PO Q12 02/11/18 Tiagabine HCl [Gabitril] 2 mg PO TID 02/11/18 Esomeprazole Magnesium [Nexium] 40 mg PO DAILY #90 capsule. 02/14/18 Megestrol Acetate [Megace 20 mg Tablet] 20 mg PO BID #60 tablet 02/14/18 History of Present Illness History of Present Illness: ERNESTO ELIZONDO is a 62 year old female, She has a history of seizure, she came to the emergency room for evaluation of vomiting for the last 2-3 days, she developed diarrhea in the last 24 hours with associated abdominal discomfort she was seen in the ED, CT scan of the abdomen and pelvis with IV contrast was done, the CT scan showed thickening of the longoria of the colon extending from the level of the splenic flexure, colitis was implied as the cause of the thickening of the longoria of the colon extending from the level of the splenic flexure to the rectum. She has also lost a lot of weight, she looks very thin, the body mass index is 16 suggesting severe underweight/malnutrition.The urinalysis is grossly abnormal suggesting UTI Hospital Course Hospital Course: Patient was admitted for the management of diarrhea, nausea and abdominal pain, she was empirically treated with IV antibiotic. Because of the significant weight loss and severe inflammatory process involving the left colon, consultation was requested from GI she had EGD/upper endoscopy and colonoscopy done today, it showed esophageal ulcer, gastritis esophagitis, right-sided colon inflammation internal hemorrhoids, no mass lesion was found. Physical Exam Vital Signs: Temp Pulse Resp BP Pulse Ox 98.2 F 82 18 111/53 L 100 02/14/18 18:55 02/14/18 18:55 02/14/18 18:55 02/14/18 18:55 02/14/18 18:55 Intake & Output 02/13/18 02/14/18 02/15/18 06:59 06:59 06:59 Intake Total 325 3015 515 Output Total 700 670 200 Balance -375 2345 315 Weight 39.1 kg 39.5 kg General appearance: PRESENT: no acute distress Neck exam: PRESENT: full ROM Respiratory exam: PRESENT: clear to auscultation madhu Cardiovascular exam: PRESENT: RRR, +S1, +S2 Pulses: PRESENT: normal dorsalis pedis pul, +2 pedal pulses bilateral Vascular exam: PRESENT: normal capillary refill GI/Abdominal exam: PRESENT: normal bowel sounds, soft Rectal exam: PRESENT: deferred Neurological exam: PRESENT: alert, awake, oriented to person, oriented to place , oriented to time, oriented to situation, CN II-XII grossly intact Psychiatric exam: PRESENT: appropriate affect, normal mood Skin exam: PRESENT: dry, intact, warm Results Laboratory Results: 02/14/18 05:07 02/14/18 08:03 02/14/18 02/14/18 05:07 08:03 WBC 4.6 RBC 3.73 Hgb 10.6 L Hct 30.4 L MCV 82 MCH 28.5 MCHC 34.9 RDW 15.6 H Plt Count 190 Seg Neutrophils % 42.0 Lymphocytes % 40.4 Monocytes % 10.3 Eosinophils % 6.0 Basophils % 1.3 Absolute Neutrophils 1.9 Absolute Lymphocytes 1.9 Absolute Monocytes 0.5 Absolute Eosinophils 0.3 Absolute Basophils 0.1 Sodium 140.4 Potassium 3.1 L Chloride 109 H Carbon Dioxide 20 L Anion Gap 11 BUN 9 Creatinine 0.77 Est GFR ( Amer) > 60 Est GFR (Non-Af Amer) > 60 Glucose 91 Calcium 8.6 Impressions: Abdomen/Pelvis CT 02/11/18 00:00 IMPRESSION: There is thickening of the longoria of the colon extending from the level of the splenic flexure to the level of the rectum which may be in part related to its non distended state however the possibility of a colitis should be considered. Other findings as noted above Head CT 02/11/18 14:22 IMPRESSION: NORMAL BRAIN CT WITHOUT CONTRAST. EVIDENCE OF ACUTE STROKE: NO. Qualifiers - * PATIENT BEING DISCHARGED WITH ANY OF THE FOLLOWING DIAGNOSIS: No
== END 2018-02-14 19:27 | disposition home or self-care (01) | DRG 392 ==
LOC: ER 12:20 → EH 19:55 → INTOOBSV 19:55 → 4S 23:09 → OBSVTOIN 02-12 18:24 → 3N 02-14 16:41
PROVIDERS: ADMIT Internal Medicine; ATTEND Internal Medicine
PROC: 0DBF8ZX Excision of Right Large Intestine, Via Natural or Artificial Opening Endoscopic, Diagnostic (ICD-10-PCS; principal; 2018-02-14 11:00)
PROC: 0DB78ZX Excision of Stomach, Pylorus, Via Natural or Artificial Opening Endoscopic, Diagnostic (ICD-10-PCS; 2018-02-14 11:00)
DX: K52.9 Noninfective gastroenteritis and colitis, unspecified (principal); N39.0 Urinary tract infection, site not specified; E44.0 Moderate protein-calorie malnutrition; Z68.1 Body mass index [BMI] 19.9 or less, adult; K22.10 Ulcer of esophagus without bleeding; K29.70 Gastritis, unspecified, without bleeding; K64.8 Other hemorrhoids; F17.210 Nicotine dependence, cigarettes, uncomplicated; G40.909 Epilepsy, unspecified, not intractable, without status epilepticus; I10 Essential (primary) hypertension; G43.909 Migraine, unspecified, not intractable, without status migrainosus; K44.9 Diaphragmatic hernia without obstruction or gangrene; K20.9 Esophagitis, unspecified
CPT/HCPCS: 36415; 43239; 45380; 70450; 74177; 80048; 80053; 81001; 813; 83605; 83690; 83735; 84484; 85025; 87040; 88305; 88342; 93005; 93010; 96361; 96365; 96375; 99291; G0378; J0696; J0744; J1170; J1644; J2250; J2550; J2704; J2765; J3010; J3490; J7030

== ENCOUNTER 2018-03-12 18:17 | Inpatient (IN) | payer MEDICARE, MEDICAID ==
[2018-03-12] MEDS ORDERED: ASPIRIN 81 MG TABLET, CHEWABLE PO ONE (19:21)
[2018-03-12] MEDS ORDERED: NORMAL SALINE 1000 ML 1,000 ML IV ONE (19:32)
[2018-03-12] MEDS ORDERED: ONDANSETRON 4 MG TAB.RAPDIS PO ONE (19:32)
--- NOTE | 2018-03-12 19:33 | ER Document Report ---
ED Medical Screen (RME) - General Chief Complaint: Chest Pain Stated Complaint: CHEST PAIN Time Seen by Provider: 03/12/18 19:28 TRAVEL OUTSIDE OF THE [place] IN LAST 30 DAYS: No - HPI Notes: 03/12/18 19:32 Chest pain nausea vomiting headaches for the last 3 days - Related Data Allergies/Adverse Reactions: butorphanol [From Stadol] Allergy (Verified 03/12/18 18:23) Past Medical History - Social History Chew tobacco use (# tins/day): No Frequency of alcohol use: None Drug Abuse: None - Past Medical History Cardiac Medical History: Reports: Hx Hypertension Neurological Medical History: Reports: Hx Migraine, Hx Seizures Renal/ Medical History: Denies: Hx Peritoneal Dialysis Psychiatric Medical History: Denies: Hx Depression Past Surgical History: Reports: Hx Abdominal Surgery - Immunizations History of Influenza Vaccine for 06/2017 - 11/2017 Season: Refused Review of Systems - Review of Systems Constitutional: Other - Chest pain nausea vomiting headaches Physical Exam - Vital signs Vitals: Temp Pulse Resp BP Pulse Ox 97.8 F 128 H 26 H 160/104 H 98 03/12/18 18:30 03/12/18 18:30 03/12/18 18:30 03/12/18 18:30 03/12/18 18:30 - General In distress: None - Respiratory Respiratory status: No respiratory distress Chest status: Nontender Breath sounds: Normal Course - Vital Signs Vital signs: Temp Pulse Resp BP Pulse Ox 97.8 F 124 H 20 140/104 H 97 03/12/18 18:30 03/12/18 19:29 03/12/18 19:29 03/12/18 19:29 03/12/18 19:29 Doctor's Discharge - Discharge Referrals: GRAEME BULLOCK MD [Primary Care Provider] - Follow up as needed
--- NOTE | 2018-03-12 19:37 | EKG REPORT ---
SEVERITY:- ABNORMAL ECG - SINUS TACHYCARDIA LVH WITH SECONDARY REPOLARIZATION ABNORMALITY PROLONGED QT INTERVAL : Confirmed by: Roman Diego MD 12-Mar-2018 19:36:52
--- NOTE | 2018-03-12 20:02 | RADIOLOGY REPORT (SQ) ---
EXAM DESCRIPTION: CHEST SINGLE VIEW COMPLETED DATE/TIME: 03/12/2018 7:48 pm REASON FOR STUDY: cp COMPARISON: 02/24/2016 EXAM PARAMETERS: NUMBER OF VIEWS: One view. TECHNIQUE: Single frontal radiographic view of the chest acquired. RADIATION DOSE: NA LIMITATIONS: None. FINDINGS: LUNGS AND PLEURA: No opacities, masses or pneumothorax. No pleural effusion. MEDIASTINUM AND HILAR STRUCTURES: No masses. Contour normal. HEART AND VASCULAR STRUCTURES: Heart normal in size. Normal vasculature. BONES: No acute findings. HARDWARE: None in the chest. OTHER: No other significant finding. IMPRESSION: NO ACUTE RADIOGRAPHIC FINDING IN THE CHEST. TECHNICAL DOCUMENTATION: JOB ID: [id number] [employer]- All Rights Reserved Reading location - IP/workstation name: [email or web address]
[2018-03-12] MEDS ORDERED: PROMETHAZINE HCL INJ 25 MG/1 ML VIAL IM ONE (20:16)
--- NOTE | 2018-03-12 20:57 | ER Document Report ---
ED General - General Mode of Arrival: Ambulatory Information source: Patient TRAVEL OUTSIDE OF THE [place] IN LAST 30 DAYS: No <MARNI FRY - Last Filed: 03/12/18 23:53> <BHUPENDRA CHUNG - Last Filed: 03/13/18 02:24> - General Chief Complaint: Chest Pain Stated Complaint: CHEST PAIN Time Seen by Provider: 03/12/18 19:28 Notes: 62 y.o female with a PMHx of hiatal hernia and migraines presents to the ED with lower abd pain. Pt reports that her sx have been going on for the past month, ever since had a seizure and was seen by a doctor in [place]. She states that her sx began as lower abd pain, then she began having CP and LUE pain and then RT sided flank pain. Pt also complains of vomiting and that she has been unable to keep down food, water and medications for the past couple of days. She denies any diarrhea and states that she had been having trouble with BMs for the past couple of days; reporting 3 BMs today and 2 BMs yesterday that "were like bricks". Pt also admits to some dysuria but denies any hx of problems with her kidneys. Pt reports a Hx of migraines for which she takes medication regularly and Dilaudid when her pain is worse than usual. She denies being able to keep down her migraine medications since onset of vomiting. Pt is also taking a blood thinner. (MARNI FRY) - Related Data Allergies/Adverse Reactions: butorphanol [From Stadol] Allergy (Verified 03/12/18 18:23) Past Medical History - Social History Smoking Status: Never Smoker Chew tobacco use (# tins/day): No Frequency of alcohol use: None Drug Abuse: None Family History: Reviewed & Not Pertinent Patient has suicidal ideation: No Patient has homicidal ideation: No - Past Medical History Cardiac Medical History: Reports: Hx Hypertension Neurological Medical History: Reports: Hx Migraine, Hx Seizures Renal/ Medical History: Denies: Hx Peritoneal Dialysis Psychiatric Medical History: Denies: Hx Depression Past Surgical History: Reports: Hx Abdominal Surgery <MARNI FRY - Last Filed: 03/12/18 23:53> Review of Systems - Review of Systems Constitutional: No symptoms reported EENT: No symptoms reported Cardiovascular: See HPI, Chest pain Respiratory: No symptoms reported Gastrointestinal: See HPI, Abdominal pain, Vomiting. denies: Diarrhea Genitourinary: See HPI, Dysuria, Flank pain - RT sided Female Genitourinary: No symptoms reported Musculoskeletal: See HPI, Other - LUE pain Skin: No symptoms reported Hematologic/Lymphatic: No symptoms reported Neurological/Psychological: No symptoms reported -: Yes All other systems reviewed and negative <MARNI FRY - Last Filed: 03/12/18 23:53> Physical Exam <MARNI FRY - Last Filed: 03/12/18 23:53> <BHUPENDRA CHUNG - Last Filed: 03/13/18 02:24> - Vital signs Vitals: Temp Pulse Resp BP Pulse Ox 97.8 F 128 H 26 H 160/104 H 98 03/12/18 18:30 03/12/18 18:30 03/12/18 18:30 03/12/18 18:30 03/12/18 18:30 - Notes Notes: Physical Exam: General: Alert, appears uncomfortable. Belching in room. HEENT: Normocephalic. Atraumatic. PERRL. Extraocular movements intact. Oropharynx clear. Neck: Supple. Non-tender. Respiratory: No respiratory distress. Clear and equal breath sounds bilaterally. Cardiovascular: Tachycardic rate and regular rhythm. Abdominal: Diffuse mild TTP. No distension. Normal Bowel Sounds. Back: Non-tender. No deformity or step off. Extremities: Moves all four extremities. Upper extremities: Normal inspection. Normal ROM. Lower extremities: Normal inspection. No edema. Normal ROM. Neurological: Normal cognition. AAOx3. Normal speech. Psychological: Anxious Skin: Warm. Dry. Normal color. (MARNI FRY) Course - Laboratory Result Diagrams: 03/12/18 21:27 03/12/18 21:27 <MARNI FRY - Last Filed: 03/12/18 23:53> - Laboratory Result Diagrams: 03/12/18 21:27 03/12/18 21:27 - Diagnostic Test Radiology reviewed: Reports reviewed <BHUPENDRA CHUNG - Last Filed: 03/13/18 02:24> - Re-evaluation Re-evalutation: 03/12/18 23:41 Updated pt. Requesting more IV Fentanyl. (MARNI FRY) 03/13/18 01:23 Patient is a 62-year-old female who comes in with abdominal pain, chest pain, nausea and vomiting. Patient has a history of a failed Jigna in the past. No acute findings on imaging. Patient has been given multiple rounds of nausea medication and is still nauseated and afraid she will vomit. Her pain is been controlled with fentanyl. She is also been given Protonix. Patient is hypokalemic likely due to her intractable nausea and vomiting at home. Patient has had hard bowel movements last 2 days. At this point, due to that she cannot keep down any p.o. fluids, she will have to be referred to the hospital service for admission. Patient is agreeable to this plan. Stable time of admission. (BHUPENDRA CHUNG) - Vital Signs Vital signs: Temp Pulse Resp BP Pulse Ox 97.8 F 60 20 140/104 H 98 03/12/18 18:30 03/12/18 23:00 03/12/18 19:29 03/12/18 19:29 03/12/18 23:00 - Laboratory Laboratory results interpreted by me: 03/12/18 03/12/18 21:27 21:27 RDW 15.8 H Sodium 147.9 H Potassium 2.9 L* Est GFR (Non-Af Amer) 50 L Glucose 126 H ALT < 6 L Discharge <MARNI FRY - Last Filed: 03/12/18 23:53> - Discharge Admitting Provider: Hospitalist - [facility] Unit Admitted: Medical Floor <BHUPENDRA CHUNG - Last Filed: 03/13/18 02:24> - Discharge Clinical Impression: Hypokalemia, Weight loss Intractable nausea and vomiting Qualifiers: Vomiting type: unspecified Qualified Code(s): R11.2 - Nausea with vomiting, unspecified Condition: Stable Disposition: ADMITTED INPATIENT Scribe Attestation: 03/13/18 02:24 I personally performed the services described in the documentation, reviewed and edited the documentation which was dictated to the scribe in my presence, and it accurately records my words and actions. (BHUPENDRA CHUNG) Scribe Documentation - Scribe Written by Scribe:: Ronak Newton 03/12/18 [id number] acting as scribe for :: Amauri <MARNI FRY - Last Filed: 03/12/18 23:53>
--- NOTE | 2018-03-12 21:06 | RADIOLOGY REPORT (SQ) ---
EXAM DESCRIPTION: CT HEAD WITHOUT COMPLETED DATE/TIME: 03/12/2018 8:56 pm REASON FOR STUDY: headache COMPARISON: 02/11/2018 TECHNIQUE: Axial images acquired through the brain without intravenous contrast. Images reviewed wi th bone, brain and subdural windows. Images stored on PACS. All CT scanners at this facility use dose modulation, iterative reconstruction, and/or weight based d osing when appropriate to reduce radiation dose to as low as reasonably achievable (ALARA). [facility]: Dose Right [facility]: CareDose [facility]: Dose Right [facility]: Teradose 4D [facility]: [employer] RADIATION DOSE: CT Rad equipment meets quality standard of care and radiation dose reduction techniq ues were employed. CTDIvol: 53.2 mGy. DLP: 1768 mGy-cm. mGy. LIMITATIONS: None. FINDINGS: VENTRICLES: Normal size and contour. CEREBRUM: No masses. No hemorrhage. No midline shift. No evidence for acute infarction. Normal gra y/white matter differentiation. No areas of low density in the white matter. CEREBELLUM: No masses. No hemorrhage. No alteration of density. No evidence for acute infarction. EXTRAAXIAL SPACES: No fluid collections. No masses. ORBITS AND GLOBE: No intra- or extraconal masses. Normal contour of globe without masses. CALVARIUM: No fracture. PARANASAL SINUSES: No fluid or mucosal thickening. SOFT TISSUES: No mass or hematoma. OTHER: No other significant finding. IMPRESSION: NORMAL BRAIN CT WITHOUT CONTRAST. EVIDENCE OF ACUTE STROKE: NO. COMMENT: Quality ID # [id number]: Final reports with documentation of one or more dose reduction techniques (e.g., Automated exposure control, adjustment of the mA and/or kV according to patient size, use of iterative reconstruction technique) TECHNICAL DOCUMENTATION: JOB ID: [id number] [employer]- All Rights Reserved Reading location - IP/workstation name: [email or web address]
[2018-03-12] MEDS ORDERED: PANTOPRAZOLE SODIUM 40 MG VIAL IV ONE (21:35)
[2018-03-12] MEDS ORDERED: FENTANYL CITRATE INJ/PF 100 MCG/2 ML AMPUL IV ONE ×2 (21:39→23:47)
[2018-03-12 21:45] LABS: ABSOLUTE MONOCYTES (AUTO) 0.8 10^3/uL (0.1-1.4); ABSOLUTE NEUT (AUTO) 5.6 10^3/uL (1.7-8.2); BASOPHILS % (AUTO) 0.5 % (0-2); EOSINOPHILS % (AUTO) 0.2 % (0-6); HEMATOCRIT 40.7 % (36.0-47.0); HEMOGLOBIN 14.5 g/dL (12.0-15.5); LYMPHOCYTES % (AUTO) 13.8 % (13-45); MEAN CORPUSCULAR HEMOGLOBIN 29.1 pg (27.0-33.4); MEAN CORPUSCULAR HGB CONC 35.6 g/dL (32.0-36.0); MEAN CORPUSCULAR VOLUME 82 fl (80-97); MONOCYTES % (AUTO) 11.1 % (3-13); PLATELET COUNT 309 10^3/uL (150-450); RED BLOOD COUNT 4.98 10^6/uL (3.72-5.28); RED CELL DISTRIBUTION WIDTH 15.8 % (11.5-14.0); SEGMENTED NEUTROPHILS % (AUTO) 74.4 % (42-78); TOTAL CELLS COUNTED % (AUTO) 100 %; WHITE BLOOD COUNT 7.5 10^3/uL (4.0-10.5)
[2018-03-12] MEDS ORDERED: DICYCLOMINE HCL INJ 20 MG/2 ML AMPULE IM ONE (21:54)
[2018-03-12 21:59] LABS: ALANINE AMINOTRANSFERASE < 6 U/L (9-52); ALBUMIN 4.6 g/dL (3.5-5.0); ALKALINE PHOSPHATASE 74 U/L (38-126); ANION GAP 15 (5-19); ASPARTATE AMINO TRANSFERASE 29 U/L (14-36); BILIRUBIN,DIRECT 0.4 mg/dL (0.0-0.4); BILIRUBIN,TOTAL 1.3 mg/dL (0.2-1.3); BLOOD UREA NITROGEN 19 mg/dL (7-20); CALCIUM 10.1 mg/dL (8.4-10.2); CARBON DIOXIDE 27 mmol/L (22-30); CHLORIDE 106 mmol/L (98-107); CREATINE KINASE 123 U/L (30-135); GLUCOSE 126 mg/dL (75-110); LIPASE 30.8 U/L (23-300); SODIUM 147.9 mmol/L (137-145); TOTAL PROTEIN 8.2 g/dL (6.3-8.2)
[2018-03-12 22:02] LABS: POTASSIUM 2.9 mmol/L (3.6-5.0)
[2018-03-12 22:18] LABS: TROPONIN I < 0.012 ng/mL
[2018-03-13] MEDS ORDERED: FENTANYL CITRATE INJ/PF 100 MCG/2 ML AMPUL IV ONE (00:45)
[2018-03-13] MEDS ORDERED: METOCLOPRAMIDE HCL INJ/PF 10 MG/2 ML SDV IV ONE (00:45)
[2018-03-13] MEDS: POTASSI CL 20 MEQ/50 ML RIDER 20 MEQ/50 ML RTUPB IV SCH ×4 (00:53→21:25)
--- NOTE | 2018-03-13 00:57 | RADIOLOGY REPORT (SQ) ---
EXAM DESCRIPTION: CT ABDOMEN PELVIS WITHOUT IV CONTRAST, CT CHEST WITHOUT IV CONTRAST COMPLETED DATE/TME: 03/13/2018 00:00 EXAM DESCRIPTION: CT CHEST, ABDOMEN AND PELVIS WITHOUT CONTRAST CLINICAL HISTORY: Abd pain, CP, h/o Jigna COMPARISON: 02/11/2018 TECHNIQUE: CT of the abdomen and pelvis without IV contrast. Evaluation of the solid organs and vasculature is suboptimal due to lack of IV contrast. DLP: 317.42 mGy-cm FINDINGS: Bones: No destructive bone lesions identified. Chest: Thyroid:No abnormalities of the visualized thyroid. Great Vessels:Great vessels have normal anatomic configuration. Thoracic Aorta: Atherosclerotic calcification of the aortic arch. Pulmonary arteries:The main pulmonary artery is not dilated. Heart:No cardiomegaly, significant pericardial effusion, or coronary artery atherosclerosis. Possible pericardial thickening is stable. Lymph Nodes:No enlarged mediastinal lymph nodes identified. Esophagus: Prior Jigna fundoplication. Other:No additional findings. Lungs:No alveolar or interstitial airspace opacities identified. Minimal bibasilar discoid atelectasis. Pleura:No pleural effusion or pneumothorax. Trachea/Airways:No abnormalities of the visualized trachea or airways. Abdomen: Liver: The liver has normal size and density. Gallbladder: Prior cholecystectomy. Spleen, Pancreas, and Adrenal Glands: The spleen, pancreas, and adrenal glands are unremarkable. Kidneys: The kidneys have normal size and contour without evidence of hydronephrosis. No obstructing ureteral calculi. Increased to the region of the medullary. This could be seen with medullary nephrocalcinosis. Vasculature: Aortoiliac atherosclerosis. IVC is unremarkable. Stomach: The stomach and duodenum have normal course. Other: No free intraperitoneal air. No free fluid or lymphadenopathy. Injection sites in the gluteal region. Pelvis: Bladder: Urinary bladder is unremarkable. Bowel: No dilated loops of large or small bowel. Appendix: Prior appendectomy. Pelvis: Prior hysterectomy. IMPRESSION: 1. No acute process identified in the chest, abdomen or pelvis. This exam was performed according to our departmental dose-optimization program, which includes automated exposure control, adjustment of the mA and/or kV according to patient size and/or use of iterative reconstruction technique.
[2018-03-13] MEDS ORDERED: OXYCODONE-ACETAMINOPHEN 5-325 MG TABLET PO PRN (01:32)
[2018-03-13] MEDS ORDERED: ACETAMINOPHEN 325 MG TABLET PO PRN (01:32)
[2018-03-13] MEDS ORDERED: PANTOPRAZOLE SODIUM 40 MG VIAL IV SCH (01:45)
--- NOTE | 2018-03-13 01:56 | PDOC H&P ---
History of Present Illness Admission Date/PCP: GRAEME BULLOCK MD History of Present Illness: ERNESTO ELIZONDO is a 62 year old black female patient with past medical history of migraine, hypertension and seizure disorder presents with 2 days history of nausea vomiting and abdominal pain. Patient has been treated with Phenergan, Zofran and Reglan despite told that she continued to have vomiting. She denies any history of fever, chills, cough, diarrhea, palpitation or diaphoresis. She does not have any urinary complaints. Her CT of chest abdomen and pelvis is unrevealing. Her blood work shows mild hyponatremia and hypokalemia with potassium 2.9. She has had ongoing headache due to her migraine but no seizure attack, her last seizure was in September 2079. Patient also complains of loss of her taste and smelling ability with associated poor appetite and loss of weight for the last 4 months. Past Medical History Cardiac Medical History: Reports: Hypertension Neurological Medical History: Reports: Migraine, Seizures Psychiatric Medical History: Denies: Depression Social History Smoking Status: Never Smoker Frequency of Alcohol Use: None Hx Recreational Drug Use: No Drugs: None - Advance Directive Resuscitation Status: Full Code Family History Family History: Reviewed & Not Pertinent, Hypertension Parental Family History Reviewed: Yes Children Family History Reviewed: Yes Sibling(s) Family History Reviewed.: Yes Medication/Allergy Home Medications: Diazepam [Valium 5 mg Tablet] 5 mg PO QHS 02/11/18 Lacosamide [Vimpat 100 mg Tablet] 100 mg PO Q12 02/11/18 Levetiracetam [Keppra 500 mg Tablet] 1,000 mg PO Q12 02/11/18 Losartan Potassium [Cozaar 100 mg Tablet] 100 mg PO DAILY 02/11/18 Quetiapine Fumarate [Seroquel] 200 mg PO Q12 02/11/18 Tiagabine HCl [Gabitril] 2 mg PO TID 02/11/18 Esomeprazole Magnesium [Nexium] 40 mg PO DAILY #90 capsule. 02/14/18 Megestrol Acetate [Megace 20 mg Tablet] 20 mg PO BID #60 tablet 02/14/18 Allergies/Adverse Reactions: butorphanol [From Stadol] Allergy (Verified 03/12/18 18:23) Review of Systems Constitutional: PRESENT: fatigue, weakness, weight loss. ABSENT: chills, fever( s), headache(s), weight gain Eyes: ABSENT: visual disturbances Cardiovascular: ABSENT: chest pain, dyspnea on exertion, edema, orthropnea, palpitations Respiratory: ABSENT: cough, hemoptysis Gastrointestinal: PRESENT: abdominal pain, constipation Integumentary: PRESENT: as per HPI Neurological: PRESENT: as per HPI Physical Exam Vital Signs: Temp Pulse Resp BP Pulse Ox 97.8 F 60 20 140/104 H 98 03/12/18 18:30 03/12/18 23:00 03/12/18 19:29 03/12/18 19:29 03/12/18 23:00 Intake & Output 03/11/18 03/12/18 03/13/18 06:59 06:59 06:59 Weight 40.6 kg General appearance: PRESENT: no acute distress, well-developed, well-nourished Head exam: PRESENT: atraumatic, normocephalic Neck exam: ABSENT: carotid bruit, JVD, lymphadenopathy, thyromegaly Respiratory exam: PRESENT: clear to auscultation madhu. ABSENT: rales, rhonchi, wheezes Cardiovascular exam: PRESENT: RRR. ABSENT: diastolic murmur, rubs, systolic murmur GI/Abdominal exam: PRESENT: normal bowel sounds, soft. ABSENT: distended, guarding, mass, organolmegaly, rebound, tenderness Extremities exam: PRESENT: full ROM. ABSENT: calf tenderness, clubbing, pedal edema Neurological exam: PRESENT: alert, awake, oriented to time, oriented to situation Psychiatric exam: PRESENT: normal mood Results Laboratory Results: 03/12/18 21:27 03/12/18 21:27 03/12/18 03/12/18 21:27 21:27 WBC 7.5 RBC 4.98 Hgb 14.5 Hct 40.7 MCV 82 MCH 29.1 MCHC 35.6 RDW 15.8 H Plt Count 309 Seg Neutrophils % 74.4 Lymphocytes % 13.8 Monocytes % 11.1 Eosinophils % 0.2 Basophils % 0.5 Absolute Neutrophils 5.6 Absolute Lymphocytes 1.0 Absolute Monocytes 0.8 Absolute Eosinophils 0.0 Absolute Basophils 0.0 Sodium 147.9 H Potassium 2.9 L* Chloride 106 Carbon Dioxide 27 Anion Gap 15 BUN 19 Creatinine 1.10 Est GFR ( Amer) > 60 Est GFR (Non-Af Amer) 50 L Glucose 126 H Calcium 10.1 Total Bilirubin 1.3 AST 29 ALT < 6 L Alkaline Phosphatase 74 Total Protein 8.2 Albumin 4.6 Lipase 30.8 03/12/18 03/12/18 21:27 21:27 Creatine Kinase 123 CK-MB (CK-2) 0.60 Troponin I < 0.012 Impressions: Chest X-Ray 03/12/18 19:21 IMPRESSION: NO ACUTE RADIOGRAPHIC FINDING IN THE CHEST. Head CT 03/12/18 20:39 IMPRESSION: NORMAL BRAIN CT WITHOUT CONTRAST. EVIDENCE OF ACUTE STROKE: NO. Abdomen/Pelvis CT 03/13/18 00:00 IMPRESSION: 1. No acute process identified in the chest, abdomen or pelvis. This exam was performed according to our departmental dose-optimization program, which includes automated exposure control, adjustment of the mA and/or kV according to patient size and/or use of iterative reconstruction technique. Chest CT 03/13/18 00:00 IMPRESSION: 1. No acute process identified in the chest, abdomen or pelvis. This exam was performed according to our departmental dose-optimization program, which includes automated exposure control, adjustment of the mA and/or kV according to patient size and/or use of iterative reconstruction technique. Assessment & Plan - Diagnosis (1) Intractable nausea and vomiting Qualifiers: Vomiting type: unspecified Qualified Code(s): R11.2 - Nausea with vomiting , unspecified Is this a current diagnosis for this admission?: Yes Plan: Patient has been started on IV hydration, Reglan and Zofran. Since patient complains of some epigastric pain empirically she was started on PPI IV. (2) Hypokalemia Is this a current diagnosis for this admission?: Yes Plan: We will replete and check her BMP in a.m. (3) Hypertension Qualifiers: Hypertension type: essential hypertension Qualified Code(s): I10 - Essential (primary) hypertension Is this a current diagnosis for this admission?: Yes Plan: Continue her home medications. (4) Seizure disorder Is this a current diagnosis for this admission?: Yes Plan: In remission since September 2017. I will continue her home Keppra and Vimpat - Time Critical Time spent with patient: 25-34 minutes
[2018-03-13] MEDS ORDERED: PANTOPRAZOLE SODIUM 40 MG VIAL IV ONE (02:00)
[2018-03-13] MEDS ORDERED: HYDROMORPHONE HCL INJ/PF 2 MG/ML AMPULE IV PRN (02:26)
[2018-03-13] MEDS: MORPHINE SULFATE 10 MG/ML INJ IV PRN ×3 (02:37→11:42)
[2018-03-13 02:48] LABS: ALANINE AMINOTRANSFERASE 12 U/L (9-52); ALBUMIN 3.9 g/dL (3.5-5.0); ALKALINE PHOSPHATASE 65 U/L (38-126); ANION GAP 14 (5-19); ASPARTATE AMINO TRANSFERASE 23 U/L (14-36); BILIRUBIN,DIRECT 0.4 mg/dL (0.0-0.4); BILIRUBIN,TOTAL 1.2 mg/dL (0.2-1.3); BLOOD UREA NITROGEN 19 mg/dL (7-20); CALCIUM 9.6 mg/dL (8.4-10.2); CARBON DIOXIDE 24 mmol/L (22-30); CHLORIDE 111 mmol/L (98-107); GLUCOSE 114 mg/dL (75-110); POTASSIUM 3.2 mmol/L (3.6-5.0); TOTAL PROTEIN 6.8 g/dL (6.3-8.2)
[2018-03-13] MEDS: POTASSI CL 20 MEQ/D5-1/2NS 1L 1,000 ML IV PRN ×2 (06:40→17:33)
[2018-03-13] MEDS: HEPARIN SOD (PORCINE) 5,000 UNIT/ML 1 ML SYRINGE SUBCUT SCH ×3 (06:45→21:23)
[2018-03-13] MEDS: METOCLOPRAMIDE HCL INJ/PF 10 MG/2 ML SDV IV SCH ×4 (09:27→21:18)
[2018-03-13] MEDS: POTASSIUM CHLORIDE 10 MEQ TABLET.SA PO SCH (09:28)
[2018-03-13] MEDS: DOCUSATE SODIUM 100 MG CAPSULE PO SCH ×2 (09:28→18:19)
[2018-03-13] MEDS: PANTOPRAZOLE SODIUM 40 MG VIAL IV SCH (09:28)
[2018-03-13] MEDS: LEVETIRACETAM 500 MG TABLET PO SCH ×2 (09:29→23:28)
[2018-03-13] MEDS: LACOSAMIDE 100 MG TABLET PO SCH ×2 (09:29→23:28)
[2018-03-13] MEDS: QUETIAPINE FUMARATE 100 MG TABLET PO SCH ×2 (09:29→21:17)
[2018-03-13] MEDS: LOSARTAN POTASSIUM 50 MG TABLET PO SCH (09:30)
[2018-03-13] MEDS: MEGESTROL ACETATE 20 MG TABLET PO SCH ×2 (09:31→18:19)
[2018-03-13] MEDS: TIAGABINE HCL 4 MG TABLET PO SCH ×3 (09:31→18:18)
[2018-03-13] MEDS ORDERED: PROMETHAZINE HCL INJ 25 MG/1 ML VIAL IV ONE (09:50)
--- NOTE | 2018-03-13 16:00 | Progress Note ---
Provider Note Provider Note: Patient admitted early AM by overnight physician. Continued to endorse headache/ migraine related pain. Also unable to tolerate POs. Patient states that she has had a steady decline since she was admitted for blood clot in head in 2017. Plan - Continue symptom control. Recommend anti-emetics 30 minutes prior to meals/ medications - Continue IVF for now, encourage PO intake as tolerated - Ordered migraine cocktail however states this does not help. Continue Dilaudid IV prn for now. This is not an acceptable custodial medication for headaches. - Continued home Tiagabine, Keppra, and Vimpat. Would be useful to confirm that she needs all 3 agents for seizure treatment - Consult to PT and case management to help with discharge planning.
[2018-03-13] MEDS: FENTANYL CITRATE INJ/PF 100 MCG/2 ML AMPUL IV PRN ×2 (17:10→21:16)
[2018-03-13] MEDS ORDERED: DIAZEPAM 5 MG TABLET PO SCH (22:00)
[2018-03-14] MEDS: HEPARIN SOD (PORCINE) 5,000 UNIT/ML 1 ML SYRINGE SUBCUT SCH ×3 (05:18→21:31)
[2018-03-14] MEDS ORDERED: ACETAMINOPHEN 650 MG SUPP.RECT PR PRN (08:12)
[2018-03-14] MEDS ORDERED: PROMETHAZINE HCL 25 MG SUPP.RECT PR PRN (08:13)
[2018-03-14] MEDS ORDERED: ACETAMINOPHEN 650 MG SUPP.RECT PR ONE (08:21)
[2018-03-14] MEDS: METOCLOPRAMIDE HCL INJ/PF 10 MG/2 ML SDV IV SCH ×4 (08:31→21:31)
[2018-03-14] MEDS: FENTANYL CITRATE INJ/PF 100 MCG/2 ML AMPUL IV PRN ×4 (08:51→21:30)
[2018-03-14] MEDS ORDERED: NORMAL SALINE 10 ML SDV (AFTER EACH USE) IV PRN (10:22)
--- NOTE | 2018-03-14 10:27 | RADIOLOGY REPORT (SQ) ---
EXAM DESCRIPTION: PICC INSERTION; FLUORO/CV PLACEMENT; U/S GUIDE FOR VASCULAR ACCESS COMPLETED DATE/TIME: 03/14/2018 10:03 am REASON FOR STUDY: need for IV medications; IV ABX; IV ACCESS COMPARISON: None. FLUOROSCOPY TIME: 0.25 minute. 1 images saved to PACS. TECHNIQUE: Fluoroscopic and ultrasound guided PICC placement. LIMITATIONS: None. PROCEDURE: After written consent and assessment were obtained, the patient was brought into the fluo roscopy room and place supine on the table. Ultrasound evaluation of potential access sites were perf ormed. After successfully identifying a patent left basilic vein, the left arm was prepped and draped in a sterile fashion along with the ultrasound probe. The entry site was anesthetized with 1% lidoca ine. A 21 gauge 7 cm needle was advanced through the skin and into the basilic vein under live ultras ound guidance. An ultrasound image was saved to PACS confirming access site. A .018 guide wire was then inserted through the needle and into the venous system. The needle was the removed and an 11 melida de scalpel was used to make a 1cm skin incision. A 5 fr peel-away sheath was advanced over the wire and into the venous system. A measurement was then made using the existing wire and live fluoroscopic guidance. The wire was then removed and the trimmed. The PICC was advanced through the peel-away she ath and into the venous system. The peel-away sheath was removed and the catheter was adhered to the patients arm with a stat lock. The catheter was then aspirated and flushed and a sterile bandage was placed over the access site. A fluoroscopic spot image was saved to PACS confirming the catheter tip within the superior vena cava. IMPRESSION: SUCCESSFUL PLACEMENT OF A 5 FR DUAL LUMEN 36 CM PICC IN THE LEFT BASILIC VEIN. COMMENT: Patient medication list reviewed: Yes- Quality ID# [id number]:Eligible professional attests to doc umenting in the medical record they obtained, updated, or reviewed the patient's current medications. . Quality ID 145: Final reports for procedures using fluoroscopy that document radiation exposure catrachita gianluca, or exposure time and number of fluorographic images (if radiation exposure indices are not avail able) Quality ID #76: The patient was prepped and draped using maximum sterile barrier technique including cap, mask, sterile gown, sterile gloves, a large sterile sheet, hand hygiene, and 2% Chlorhexidine fo r cutaneous antisepsis. When ultrasound is used, sterile ultrasound techniques are followed requiring sterile gel and sterile probes. TECHNICAL DOCUMENTATION: JOB ID: [id number] [employer]- All Rights Reserved rev-02/14 Reading location - IP/workstation name: [facility]
[2018-03-14] MEDS: PANTOPRAZOLE SODIUM 40 MG VIAL IV SCH (10:30)
[2018-03-14] MEDS: POTASSI CL 20 MEQ/D5-1/2NS 1L 1,000 ML IV PRN ×2 (10:33→20:34)
[2018-03-14] MEDS: QUETIAPINE FUMARATE 100 MG TABLET PO SCH ×2 (10:38→21:30)
[2018-03-14] MEDS: POTASSIUM CHLORIDE 10 MEQ TABLET.SA PO SCH (10:38)
[2018-03-14] MEDS: TIAGABINE HCL 4 MG TABLET PO SCH ×3 (10:38→16:42)
[2018-03-14] MEDS: LEVETIRACETAM 500 MG TABLET PO SCH ×2 (10:38→21:31)
[2018-03-14] MEDS: DOCUSATE SODIUM 100 MG CAPSULE PO SCH ×2 (10:38→16:42)
[2018-03-14] MEDS: LOSARTAN POTASSIUM 50 MG TABLET PO SCH (10:38)
[2018-03-14] MEDS: LACOSAMIDE 100 MG TABLET PO SCH ×2 (10:38→21:30)
[2018-03-14] MEDS ORDERED: PROMETHAZINE HCL 25 MG TABLET PO PRN (13:51)
[2018-03-14] MEDS ORDERED: LORAZEPAM INJ 2 MG/1 ML VIAL IV PRN (13:55)
[2018-03-14] MEDS ORDERED: MELATONIN 5 MG TABLET PO PRN (13:57)
[2018-03-14 15:33] LABS: ALANINE AMINOTRANSFERASE 17 U/L (9-52); ALKALINE PHOSPHATASE 47 U/L (38-126); ANION GAP 8 (5-19); ASPARTATE AMINO TRANSFERASE 18 U/L (14-36); BILIRUBIN,DIRECT 0.3 mg/dL (0.0-0.4); BILIRUBIN,TOTAL 0.6 mg/dL (0.2-1.3); BLOOD UREA NITROGEN 11 mg/dL (7-20); CALCIUM 9.1 mg/dL (8.4-10.2); CARBON DIOXIDE 22 mmol/L (22-30); CHLORIDE 113 mmol/L (98-107); GLUCOSE 88 mg/dL (75-110); POTASSIUM 3.5 mmol/L (3.6-5.0); SODIUM 143.2 mmol/L (137-145); TOTAL PROTEIN 5.6 g/dL (6.3-8.2)
--- NOTE | 2018-03-14 17:47 | PDOC PROGRESS REPORT ---
Subjective Progress Note for:: 03/14/18 Subjective:: Whimpering when I came into her room. Through the course of the interview she was able to speak with me without distress. We talked about how she is been doing since her recent stroke. She states that she has lost her sense of taste and smell and she has lost about 40 pounds since September. She does not report that she is anxious but reports that she has pain all over her chest shoulders and sometimes in her abdomen. She does not know why she has so much pain. She is often nauseated. She had a neurologist as an outpatient for her migraines and seizure disorder but her neurologist retired and she has not seen a doctor as an outpatient recently. Dates that she has not been taking her seizure meds for this reason. Patient states that she does not think that she is anxious and has a good family and that people take care of her in her home. She does tell me that she was, not too far in the past, prescribed oral Phenergan and oral Dilaudid for her nausea and chronic pain. At this point she has not really been eating or drinking in the hospital, she states that she is vomited several times, she has her chronic level of pain. No fevers or chills. No bleeding. Moving her bowels normally today. No dysuria. Reason For Visit: INTRACTABLE NAUSEA/VOMITING,HYPOKALEMIA, AND HTN Physical Exam Vital Signs: Temp Pulse Resp BP Pulse Ox 98.6 F 94 19 144/90 H 100 03/14/18 15:46 03/14/18 15:46 03/14/18 15:46 03/14/18 15:46 03/14/18 15:46 Intake & Output 03/13/18 03/14/18 03/15/18 06:59 06:59 06:59 Intake Total 1415 Balance 1415 Weight 45.1 kg General appearance: PRESENT: cooperative, mild distress, thin Head exam: PRESENT: atraumatic, normocephalic Eye exam: ABSENT: conjunctival injection, scleral icterus Ear exam: PRESENT: normal external ear exam Mouth exam: PRESENT: moist, tongue midline Respiratory exam: PRESENT: clear to auscultation madhu, unlabored. ABSENT: prolonged expiratory phas, rales, rhonchi, wheezes Cardiovascular exam: PRESENT: RRR. ABSENT: diastolic murmur, systolic murmur Pulses: PRESENT: normal radial pulses GI/Abdominal exam: PRESENT: soft, other - Scaphoid abdomen. ABSENT: distended, guarding, tenderness Rectal exam: PRESENT: deferred Extremities exam: ABSENT: pedal edema Musculoskeletal exam: PRESENT: normal inspection Neurological exam: PRESENT: alert, awake, oriented to person, oriented to place , oriented to situation, CN II-XII grossly intact Psychiatric exam: PRESENT: unusual affect Skin exam: PRESENT: dry, intact, warm Results Laboratory Results: 03/14/18 15:00 03/14/18 03/14/18 15:00 15:00 Sodium 143.2 Cancelled Potassium 3.5 L Cancelled Chloride 113 H Cancelled Carbon Dioxide 22 Cancelled Anion Gap 8 Cancelled BUN 11 Cancelled Creatinine 0.80 Cancelled Est GFR ( Amer) > 60 Cancelled Est GFR (Non-Af Amer) > 60 Cancelled Glucose 88 Cancelled Calcium 9.1 Cancelled Magnesium 1.8 Total Bilirubin 0.6 AST 18 ALT 17 Alkaline Phosphatase 47 Total Protein 5.6 L Albumin 3.0 L Impressions: Chest X-Ray 03/12/18 19:21 IMPRESSION: NO ACUTE RADIOGRAPHIC FINDING IN THE CHEST. Head CT 03/12/18 20:39 IMPRESSION: NORMAL BRAIN CT WITHOUT CONTRAST. EVIDENCE OF ACUTE STROKE: NO. Abdomen/Pelvis CT 03/13/18 00:00 IMPRESSION: 1. No acute process identified in the chest, abdomen or pelvis. This exam was performed according to our departmental dose-optimization program, which includes automated exposure control, adjustment of the mA and/or kV according to patient size and/or use of iterative reconstruction technique. Chest CT 03/13/18 00:00 IMPRESSION: 1. No acute process identified in the chest, abdomen or pelvis. This exam was performed according to our departmental dose-optimization program, which includes automated exposure control, adjustment of the mA and/or kV according to patient size and/or use of iterative reconstruction technique. Guidance Fluoroscopy 03/14/18 00:00 IMPRESSION: SUCCESSFUL PLACEMENT OF A 5 FR DUAL LUMEN 36 CM PICC IN THE LEFT BASILIC VEIN. Interventional Vascular Procedure 03/14/18 00:00 IMPRESSION: SUCCESSFUL PLACEMENT OF A 5 FR DUAL LUMEN 36 CM PICC IN THE LEFT BASILIC VEIN. PICC Line Insertion 03/14/18 00:00 IMPRESSION: SUCCESSFUL PLACEMENT OF A 5 FR DUAL LUMEN 36 CM PICC IN THE LEFT BASILIC VEIN. Assessment & Plan - Diagnosis (1) Intractable nausea and vomiting Qualifiers: Vomiting type: unspecified Qualified Code(s): R11.2 - Nausea with vomiting , unspecified Is this a current diagnosis for this admission?: Yes Plan: Not entirely clear etiology, patient is a little bit of distress and is unable to give me all the details related to this history. I will continue to learn more from her as I am able. She tells me that she has Phenergan 25 mg tabs at home that she has been prescribed for her nausea and vomiting. She is willing to try to get a Phenergan tab down now. Again 25 mg p.o. every 6 hours as needed nausea and vomiting. She states that if she can get the Phenergan tab down she will try crackers and carlos nikolay. (2) Chronic pain syndrome Is this a current diagnosis for this admission?: Yes Plan: Patient states that she is prescribed Dilaudid 4 mg tabs. She takes them very occasionally, when she has a pain flare. I will try to learn more about her chronic pain syndrome. Do not think that opioids are the answer to her chronic pain syndrome but for now I feel that I have to, in the safe hospital setting, try to break the cycle that she is in with her distress related to her pain. I would like to stop using IV opioids, will start her on her Dilaudid 4 mg tabs as needed severe pain. (3) Seizure disorder Is this a current diagnosis for this admission?: Yes Plan: Occasions, will keep them IV for now until we know she can eat and drink well. No seizures while in the hospital. She will need to have an appointment with a neurologist for discharge. (4) Weight loss Is this a current diagnosis for this admission?: Yes Plan: Unclear etiology, possibly related to stroke sequelae. CT scan of the chest abdomen and pelvis are negative. She states she is up-to-date with her mammography and colonoscopy. She will need good primary care. (5) Migraine headache Is this a current diagnosis for this admission?: Yes Plan: She states that from time to time she takes Dilaudid for her migraines. She is not currently having a migraine. We will continue to follow. (6) History of recent stroke Is this a current diagnosis for this admission?: Yes Plan: Unclear history. She states that she recently was diagnosed with a blood clot in her brain. She states that since that time she has been losing weight, has no sense of taste or smell. She will need close follow-up with neurology. - Time Time Spent with patient: 35 or more minutes Anticipated discharge: Home - Inpatient Certification Based on my medical assessment, after consideration of the patient's comorbidities, presenting symptoms, or acuity I expect that the services needed warrant INPATIENT care.: Yes I certify that my determination is in accordance with my understanding of Medicare's requirements for reasonable and necessary INPATIENT services [42 CFR 412.3e].: Yes Medical Necessity: Need for Pain Control
[2018-03-14] MEDS: HYDROMORPHONE HCL 2 MG TABLET PO PRN (18:41)
[2018-03-14] MEDS: NORMAL SALINE 10 ML SDV (SCHEDULED) IV SCH (21:31)
[2018-03-15] MEDS: HYDROMORPHONE HCL 2 MG TABLET PO PRN ×4 (03:11→23:45)
[2018-03-15] MEDS: HEPARIN SOD (PORCINE) 5,000 UNIT/ML 1 ML SYRINGE SUBCUT SCH ×3 (06:47→21:11)
[2018-03-15] MEDS: POTASSI CL 20 MEQ/D5-1/2NS 1L 1,000 ML IV PRN ×2 (06:50→17:58)
[2018-03-15] MEDS: METOCLOPRAMIDE HCL INJ/PF 10 MG/2 ML SDV IV SCH ×3 (08:15→15:18)
[2018-03-15] MEDS: POTASSIUM CHLORIDE 10 MEQ TABLET.SA PO SCH (10:02)
[2018-03-15] MEDS: DOCUSATE SODIUM 100 MG CAPSULE PO SCH ×2 (10:03→17:58)
[2018-03-15] MEDS: LACOSAMIDE 100 MG TABLET PO SCH ×2 (10:03→21:11)
[2018-03-15] MEDS: QUETIAPINE FUMARATE 100 MG TABLET PO SCH ×2 (10:03→21:11)
[2018-03-15] MEDS: PANTOPRAZOLE SODIUM 40 MG VIAL IV SCH (10:04)
[2018-03-15] MEDS: NORMAL SALINE 10 ML SDV (SCHEDULED) IV SCH ×2 (10:05→21:11)
[2018-03-15] MEDS: LEVETIRACETAM 500 MG TABLET PO SCH ×2 (10:07→21:11)
[2018-03-15] MEDS: TIAGABINE HCL 4 MG TABLET PO SCH ×3 (10:11→17:58)
[2018-03-15] MEDS: LOSARTAN POTASSIUM 50 MG TABLET PO SCH (10:12)
[2018-03-15] MEDS ORDERED: LORAZEPAM 1 MG TABLET PO PRN (11:52)
--- NOTE | 2018-03-15 18:00 | PDOC PROGRESS REPORT ---
Subjective Progress Note for:: 03/15/18 Subjective:: Patient was asleep when I went into her room. I touch her lightly to wake her up and she immediately started saying any pain medicine I need pain medicine. I reminded her that she had just been sound asleep she kind of nodded and shrugged her shoulders. Per nursing reports she has had less difficulty with pain control. He has been eating a little bit without vomiting. No difficulty breathing. Reason For Visit: INTRACTABLE NAUSEA/VOMITING,HYPOKALEMIA, AND HTN Physical Exam Vital Signs: Temp Pulse Resp BP Pulse Ox 98.2 F 96 14 114/73 94 03/15/18 16:00 03/15/18 16:00 03/15/18 16:00 03/15/18 16:00 03/15/18 16:00 Intake & Output 03/14/18 03/15/18 03/16/18 06:59 06:59 06:59 Intake Total 1415 3850 Balance 1415 3850 Weight 45.1 kg 44.2 kg General appearance: PRESENT: no acute distress, thin Head exam: PRESENT: atraumatic, normocephalic Respiratory exam: PRESENT: clear to auscultation madhu, unlabored. ABSENT: rales , rhonchi, wheezes Pulses: PRESENT: normal radial pulses GI/Abdominal exam: PRESENT: normal bowel sounds, soft. ABSENT: distended, tenderness Rectal exam: PRESENT: deferred Extremities exam: ABSENT: pedal edema Neurological exam: PRESENT: oriented to person, oriented to place, other - very sleepy but arousable Psychiatric exam: PRESENT: unusual affect. ABSENT: anxious Skin exam: PRESENT: dry, intact, warm Results Laboratory Results: 03/14/18 15:00 Impressions: Chest X-Ray 03/12/18 19:21 IMPRESSION: NO ACUTE RADIOGRAPHIC FINDING IN THE CHEST. Head CT 03/12/18 20:39 IMPRESSION: NORMAL BRAIN CT WITHOUT CONTRAST. EVIDENCE OF ACUTE STROKE: NO. Abdomen/Pelvis CT 03/13/18 00:00 IMPRESSION: 1. No acute process identified in the chest, abdomen or pelvis. This exam was performed according to our departmental dose-optimization program, which includes automated exposure control, adjustment of the mA and/or kV according to patient size and/or use of iterative reconstruction technique. Chest CT 03/13/18 00:00 IMPRESSION: 1. No acute process identified in the chest, abdomen or pelvis. This exam was performed according to our departmental dose-optimization program, which includes automated exposure control, adjustment of the mA and/or kV according to patient size and/or use of iterative reconstruction technique. Guidance Fluoroscopy 03/14/18 00:00 IMPRESSION: SUCCESSFUL PLACEMENT OF A 5 FR DUAL LUMEN 36 CM PICC IN THE LEFT BASILIC VEIN. Interventional Vascular Procedure 03/14/18 00:00 IMPRESSION: SUCCESSFUL PLACEMENT OF A 5 FR DUAL LUMEN 36 CM PICC IN THE LEFT BASILIC VEIN. PICC Line Insertion 03/14/18 00:00 IMPRESSION: SUCCESSFUL PLACEMENT OF A 5 FR DUAL LUMEN 36 CM PICC IN THE LEFT BASILIC VEIN. Assessment & Plan - Diagnosis (1) Intractable nausea and vomiting Qualifiers: Vomiting type: unspecified Qualified Code(s): R11.2 - Nausea with vomiting , unspecified Is this a current diagnosis for this admission?: Yes Plan: Seems to have resolved. She is able to take oral Phenergan if needed. She has started to take bites of food. She had a large bowel movement. (2) Chronic pain syndrome Is this a current diagnosis for this admission?: Yes Plan: Seems to be doing a little better with her oral Dilaudid and we will continue her home dosing 4 mg p.o. every 6 hours as needed pain. (3) Seizure disorder Is this a current diagnosis for this admission?: Yes Plan: No seizures over the past few days. Continue current seizure medications include Vimpat 100 mg p.o. every 12, Keppra 1000 mg po MARRY and tiagabine 2 mg po TID. hopefully we can help this patient find a neurologist on discharge. (4) Weight loss Is this a current diagnosis for this admission?: Yes Plan: unclear etiology and will need close follow up with PCP, which we will need to help her find (5) Migraine headache Is this a current diagnosis for this admission?: Yes Plan: She seems stable from this perspective. Continue to monitor. (6) History of recent stroke Is this a current diagnosis for this admission?: Yes Plan: Once pt is less acutely ill we will order PT to assess her needs. - Time Time Spent with patient: 25-34 minutes Medications reviewed and adjusted accordingly: Yes - Inpatient Certification Based on my medical assessment, after consideration of the patient's comorbidities, presenting symptoms, or acuity I expect that the services needed warrant INPATIENT care.: Yes I certify that my determination is in accordance with my understanding of Medicare's requirements for reasonable and necessary INPATIENT services [42 CFR 412.3e].: Yes Medical Necessity: Need Close Monitoring Due to Risk of Patient Decompensation
[2018-03-15] MEDS: PROMETHAZINE HCL 25 MG TABLET PO PRN (21:29)
[2018-03-15 21:56] LABS: ANION GAP 6 (5-19); BLOOD UREA NITROGEN 6 mg/dL (7-20); CALCIUM 8.8 mg/dL (8.4-10.2); CARBON DIOXIDE 22 mmol/L (22-30); CHLORIDE 115 mmol/L (98-107); GLUCOSE 81 mg/dL (75-110); POTASSIUM 4.3 mmol/L (3.6-5.0); SODIUM 142.6 mmol/L (137-145)
[2018-03-16] MEDS: POTASSI CL 20 MEQ/D5-1/2NS 1L 1,000 ML IV PRN (04:03)
[2018-03-16] MEDS: PROMETHAZINE HCL 25 MG TABLET PO PRN (04:15)
[2018-03-16 04:28] LABS: HEMATOCRIT 28.1 % (36.0-47.0); HEMOGLOBIN 9.7 g/dL (12.0-15.5); MEAN CORPUSCULAR HEMOGLOBIN 29.3 pg (27.0-33.4); MEAN CORPUSCULAR HGB CONC 34.6 g/dL (32.0-36.0); MEAN CORPUSCULAR VOLUME 85 fl (80-97); PLATELET COUNT 168 10^3/uL (150-450); RED BLOOD COUNT 3.31 10^6/uL (3.72-5.28); RED CELL DISTRIBUTION WIDTH 15.5 % (11.5-14.0); WHITE BLOOD COUNT 3.1 10^3/uL (4.0-10.5)
[2018-03-16 04:39] LABS: ANION GAP 5 (5-19); BLOOD UREA NITROGEN 5 mg/dL (7-20); CARBON DIOXIDE 22 mmol/L (22-30); CHLORIDE 116 mmol/L (98-107); GLUCOSE 76 mg/dL (75-110); POTASSIUM 4.1 mmol/L (3.6-5.0)
[2018-03-16] MEDS: HEPARIN SOD (PORCINE) 5,000 UNIT/ML 1 ML SYRINGE SUBCUT SCH ×3 (06:24→22:43)
[2018-03-16] MEDS: HYDROMORPHONE HCL 2 MG TABLET PO PRN ×3 (06:24→20:36)
[2018-03-16 09:27] LABS: HEMATOCRIT 29.9 % (36.0-47.0); HEMOGLOBIN 10.3 g/dL (12.0-15.5); MEAN CORPUSCULAR HEMOGLOBIN 28.9 pg (27.0-33.4); MEAN CORPUSCULAR HGB CONC 34.4 g/dL (32.0-36.0); MEAN CORPUSCULAR VOLUME 84 fl (80-97); PLATELET COUNT 180 10^3/uL (150-450); RED BLOOD COUNT 3.56 10^6/uL (3.72-5.28); RED CELL DISTRIBUTION WIDTH 15.8 % (11.5-14.0); WHITE BLOOD COUNT 3.1 10^3/uL (4.0-10.5)
[2018-03-16 09:37] LABS: ANION GAP 6 (5-19); BLOOD UREA NITROGEN 5 mg/dL (7-20); CALCIUM 9.1 mg/dL (8.4-10.2); CARBON DIOXIDE 22 mmol/L (22-30); CHLORIDE 115 mmol/L (98-107); GLUCOSE 76 mg/dL (75-110); SODIUM 142.9 mmol/L (137-145)
[2018-03-16] MEDS: QUETIAPINE FUMARATE 100 MG TABLET PO SCH ×2 (09:58→22:43)
[2018-03-16] MEDS: TIAGABINE HCL 4 MG TABLET PO SCH ×3 (09:58→17:16)
[2018-03-16] MEDS: LACOSAMIDE 100 MG TABLET PO SCH ×2 (09:58→22:43)
[2018-03-16] MEDS: LEVETIRACETAM 500 MG TABLET PO SCH ×2 (09:58→22:43)
[2018-03-16] MEDS: DOCUSATE SODIUM 100 MG CAPSULE PO SCH ×2 (09:59→17:16)
[2018-03-16] MEDS: NORMAL SALINE 10 ML SDV (SCHEDULED) IV SCH ×2 (09:59→22:43)
--- NOTE | 2018-03-16 17:26 | PDOC PROGRESS REPORT ---
Subjective Progress Note for:: 03/16/18 Subjective:: Patient is much more awake and alert today on examination. She is able to sit up and move around and speak, she is not whimpering or complaining of full body pain. sHe is able to laugh a little bit. She dates that she is no longer vomiting and has been eating a little bit. She still complains of headache pain. She states that she has a history of severe migraines and takes Nucynta for this. She tells me that she has been seen by a neurologist for her migraines, seizure disorder, recent stroke and that recently her neurologist retired and so she has not had her medications or seen her neurologist for an unknown period of time. She also does not have a primary care doctor. She agrees that she may have some anxiety and depression, she feels she is a burden to her family and she agrees to a psychiatric evaluation. She talked about her weight loss over the last few months. She is not sure why she cannot gain weight. Reason For Visit: INTRACTABLE NAUSEA/VOMITING,HYPOKALEMIA, AND HTN Physical Exam Vital Signs: Temp Pulse Resp BP Pulse Ox 98.6 F 105 H 17 132/92 H 98 03/16/18 15:24 03/16/18 15:24 03/16/18 15:24 03/16/18 15:24 03/16/18 15:24 Intake & Output 03/15/18 03/16/18 03/17/18 06:59 06:59 06:59 Intake Total 3850 2540 Balance 3850 2540 Weight 44.2 kg 53.5 kg General appearance: PRESENT: no acute distress, cooperative, thin Head exam: PRESENT: atraumatic, normocephalic, other - Bitemporal wasting evident Eye exam: ABSENT: conjunctival injection, scleral icterus Mouth exam: PRESENT: moist, tongue midline Respiratory exam: PRESENT: clear to auscultation madhu, unlabored. ABSENT: rales , rhonchi, wheezes Cardiovascular exam: PRESENT: RRR. ABSENT: systolic murmur Pulses: PRESENT: normal radial pulses, +2 pedal pulses bilateral GI/Abdominal exam: PRESENT: normal bowel sounds, soft. ABSENT: distended, guarding, tenderness Extremities exam: ABSENT: joint swelling, pedal edema Musculoskeletal exam: PRESENT: normal inspection, other - Very thin Neurological exam: PRESENT: alert, awake, oriented to person, oriented to place , oriented to situation, CN II-XII grossly intact. ABSENT: aphasic Psychiatric exam: PRESENT: anxious, unusual affect Skin exam: PRESENT: dry, intact, warm Results Laboratory Results: 03/16/18 08:53 03/16/18 08:53 03/15/18 03/15/18 03/16/18 20:14 21:25 04:12 WBC RBC Hgb Hct MCV MCH MCHC RDW Plt Count Sodium Cancelled 142.6 143.0 Potassium Cancelled 4.3 4.1 Chloride Cancelled 115 H 116 H Carbon Dioxide Cancelled 22 22 Anion Gap Cancelled 6 5 BUN Cancelled 6 L 5 L Creatinine Cancelled 0.96 0.97 Est GFR ( Amer) Cancelled > 60 > 60 Est GFR (Non-Af Amer) Cancelled 59 L 58 L Glucose Cancelled 81 76 Calcium Cancelled 8.8 9.0 03/16/18 03/16/18 03/16/18 04:12 08:53 08:53 WBC 3.1 L 3.1 L RBC 3.31 L 3.56 L Hgb 9.7 L 10.3 L Hct 28.1 L 29.9 L MCV 85 84 MCH 29.3 28.9 MCHC 34.6 34.4 RDW 15.5 H 15.8 H Plt Count 168 180 Sodium 142.9 Potassium 4.0 Chloride 115 H Carbon Dioxide 22 Anion Gap 6 BUN 5 L Creatinine 0.94 Est GFR ( Amer) > 60 Est GFR (Non-Af Amer) > 60 Glucose 76 Calcium 9.1 Impressions: Chest X-Ray 03/12/18 19:21 IMPRESSION: NO ACUTE RADIOGRAPHIC FINDING IN THE CHEST. Head CT 03/12/18 20:39 IMPRESSION: NORMAL BRAIN CT WITHOUT CONTRAST. EVIDENCE OF ACUTE STROKE: NO. Abdomen/Pelvis CT 03/13/18 00:00 IMPRESSION: 1. No acute process identified in the chest, abdomen or pelvis. This exam was performed according to our departmental dose-optimization program, which includes automated exposure control, adjustment of the mA and/or kV according to patient size and/or use of iterative reconstruction technique. Chest CT 03/13/18 00:00 IMPRESSION: 1. No acute process identified in the chest, abdomen or pelvis. This exam was performed according to our departmental dose-optimization program, which includes automated exposure control, adjustment of the mA and/or kV according to patient size and/or use of iterative reconstruction technique. Guidance Fluoroscopy 03/14/18 00:00 IMPRESSION: SUCCESSFUL PLACEMENT OF A 5 FR DUAL LUMEN 36 CM PICC IN THE LEFT BASILIC VEIN. Interventional Vascular Procedure 03/14/18 00:00 IMPRESSION: SUCCESSFUL PLACEMENT OF A 5 FR DUAL LUMEN 36 CM PICC IN THE LEFT BASILIC VEIN. PICC Line Insertion 03/14/18 00:00 IMPRESSION: SUCCESSFUL PLACEMENT OF A 5 FR DUAL LUMEN 36 CM PICC IN THE LEFT BASILIC VEIN. Assessment & Plan - Diagnosis (1) Migraine headache Is this a current diagnosis for this admission?: Yes Plan: Patient states she has a long-standing migraine history. She has told us that she uses Nucynta for migraines. At this point she is on Dilaudid 2 mg p.o. every 6 hours as needed pain and she does seem clinically improved. MRI of the head is ordered given her history of stroke and migraines along with seizure disorder, she does not have any focal neurologic deficits at this time. (2) Depression with anxiety Is this a current diagnosis for this admission?: Yes Plan: She agrees that these may be active and untreated diagnoses for her. She welcomes a psychiatry evaluation which I will order today. (3) Intractable nausea and vomiting Qualifiers: Vomiting type: unspecified Qualified Code(s): R11.2 - Nausea with vomiting , unspecified Is this a current diagnosis for this admission?: Yes Plan: Improving. Yesterday due to excessive somnolence I reduced her Phenergan dose to 12.5 mg and she is able to tolerate the tab. She continues to ask for IV Phenergan but I have continued on the tab as she is able to eat now. Does me that in the past she has had Phenergan 25 mg tabs in the home and initially she was on 25 mg tabs but again secondary to somnolence have decreased the dosing. Seems effective today. (4) Chronic pain syndrome Is this a current diagnosis for this admission?: Yes Plan: Etiology not clear. Cannot give me details except for to say that she has a severe migraine history. Nucynta is on her medication list. She also tells me that some doctors have prescribed oral Dilaudid. She told me initially that 4 mg of oral Dilaudid was an effective dose for her and so I initially started her on this and due to excessive somnolence yesterday I decreased the dose to 2 mg of oral Dilaudid and she is a lot more awake today, more normal affect, no whimpering, overall clinically appears improved. (5) Seizure disorder Is this a current diagnosis for this admission?: Yes Plan: She is on 3 seizure medications, Keppra, Vimpat and Gabitril. Again, she tells me that her neurologist has retired and that she was in the process of being weaned off of 2 of her medications and that her neurologist was going to try Keppra alone. Need to get her a neurology appointment for discharge. (6) Weight loss Is this a current diagnosis for this admission?: Yes Plan: Unclear why. She states that she had a stroke earlier this year and since that time has had a difficult time smelling and tasting she is not eating as much. This will need to be followed closely as an outpatient, she will need a PCP appointment made on discharge. I have added Ensure to each of her trays. (7) History of recent stroke Is this a current diagnosis for this admission?: Yes Plan: No focal neurologic deficits. Patient states she has lost her smell and taste senses. She will need close neuro follow-up. MRI of the brain is pending. - Time Time Spent with patient: 35 or more minutes Medications reviewed and adjusted accordingly: Yes Anticipated discharge: Home - Inpatient Certification Based on my medical assessment, after consideration of the patient's comorbidities, presenting symptoms, or acuity I expect that the services needed warrant INPATIENT care.: Yes I certify that my determination is in accordance with my understanding of Medicare's requirements for reasonable and necessary INPATIENT services [42 CFR 412.3e].: Yes Medical Necessity: Need for Pain Control
[2018-03-17] MEDS: HYDROMORPHONE HCL 2 MG TABLET PO PRN ×3 (04:37→18:11)
[2018-03-17] MEDS: POTASSI CL 20 MEQ/D5-1/2NS 1L 1,000 ML IV PRN (04:41)
[2018-03-17] MEDS: HEPARIN SOD (PORCINE) 5,000 UNIT/ML 1 ML SYRINGE SUBCUT SCH ×3 (05:00→22:29)
--- NOTE | 2018-03-17 08:55 | RADIOLOGY REPORT (SQ) ---
EXAM DESCRIPTION: MRI HEAD WITHOUT COMPLETED DATE/TIME: 03/17/2018 8:31 am REASON FOR STUDY: unrelenting headache COMPARISON: None. TECHNIQUE: Multiplanar imaging includes non-contrasted T1, T2, FLAIR, and diffusion with ADC map seq uences. Images stored on PACS. LIMITATIONS: None. FINDINGS: ANATOMY: No anomalies. Normal vascular flow voids. Pituitary fossa normal. CSF SPACES: Atrophy induced prominence of ventricles and CSF spaces. CEREBRUM: High signal intensity lesions scattered throughout the white matter on FLAIR imaging with d istribution suggesting micro-vascular ischemic changes. No evidence of hemorrhage, mass, or extraaxi al fluid collection. POSTERIOR FOSSA: No signal alteration. No hemorrhage. No edema, masses or mass effect. Internal marycruz tory canals, cerebello-pontine angles, mastoids normal. DIFFUSION IMAGING: Negative for acute or sub-acute infarction. ORBITS: No masses. Globes normal. PARANASAL SINUSES: No fluid levels. Mucosa normal. OTHER: No other significant finding. IMPRESSION: ATROPHY AND CHRONIC MICRO-VASCULAR ISCHEMIC CHANGES. OTHERWISE NORMAL MRI OF THE BRAIN W ITHOUT INTRAVENOUS GADOLINIUM CONTRAST. EVIDENCE OF ACUTE STROKE: NO. TECHNICAL DOCUMENTATION: JOB ID: [id number] [employer]- All Rights Reserved Reading location - IP/workstation name: [email or web address]
--- NOTE | 2018-03-17 09:22 | Progress Note ---
Provider Note Provider Note: CARO OROZCO Search Criteria: Last Name 'Caro' and First Name 'Moriah' and = ' and Request Period = 09/18/17' to 03/17/18' - 1 out of 1 Recipients Selected. Fill Date Product, Str, Form Qty Days Pt ID Prescriber Written RX# N/R* Pharm MED+ ------ ---- --------- --- ------- ----- --------- ------ 03/12/2018 DIAZEPAM 5 MG TABLET 30.00 30 [id number] 12/20/2017 [id number] N [id number] 00.0 02/18/2018 HYDROMORPHONE 4 MG TABLET 8.00 4 [id number] 02/18/2018 [id number] N [id number] 32.0 02/18/2018 NUCYNTA 100 MG TABLET 180.00 30 [id number] 02/18/2018 [id number] N [id number] 240.0 02/10/2018 DIAZEPAM 5 MG TABLET 30.00 30 [id number] 08/28/2017 [id number] R [id number] 00.0 01/18/2018 NUCYNTA 100 MG TABLET 180.00 30 [id number] 01/17/2018 [id number] N [id number] 240.0 01/17/2018 VIMPAT 100 MG TABLET 60.00 30 [id number] 01/17/2018 [id number] N [id number] 00.0 01/13/2018 DIAZEPAM 5 MG TABLET 30.00 30 [id number] 08/28/2017 [id number] R [id number] 00.0 12/20/2017 NUCYNTA 100 MG TABLET 180.00 30 [id number] 12/20/2017 [id number] N [id number] 240.0 12/13/2017 DIAZEPAM 5 MG TABLET 30.00 30 [id number] 08/28/2017 [id number] R [id number] K 11/20/2017 NUCYNTA 100 MG TABLET 180.00 30 [id number] 11/20/2017 [id number] N [id number] 240.0 11/20/2017 DIAZEPAM 5 MG TABLET 30.00 30 [id number] 08/28/2017 [id number] R [id number] K 11/18/2017 HYDROMORPHONE 2 MG TABLET 30.00 8 [id number] 11/17/2017 [id number] N [id number] 30.0 10/17/2017 NUCYNTA 100 MG TABLET 180.00 30 [id number] 10/17/2017 [id number] N [id number] 240.0 10/16/2017 BUTORPHANOL 10 MG/ML SPRAY 2.50 14 [id number] 10/16/2017 [id number] N [id number] 12.5 10/10/2017 DIAZEPAM 5 MG TABLET 30.00 30 [id number] 08/28/2017 [id number] R [id number] [facility] 09/21/2017 NUCYNTA 100 MG TABLET 120.00 30 [id number] 08/28/2017 [id number] N [id number] 160.0 09/18/2017 DIAZEPAM 5 MG TABLET 30.00 30 [id number] 08/28/2017 [id number] N [id number] [id number] GRAEME BULLOCK III; [facility], [address] [id number] MYRON KOROMA MD; [facility], [facility] [id number] QUIANA ALCALA (SCOTTIE); [facility], [address] [place] [id number] Pharmacies that dispensed prescriptions listed
[2018-03-17] MEDS: LEVETIRACETAM 500 MG TABLET PO SCH ×2 (09:37→22:29)
[2018-03-17] MEDS: QUETIAPINE FUMARATE 100 MG TABLET PO SCH ×2 (09:37→22:29)
[2018-03-17] MEDS: DOCUSATE SODIUM 100 MG CAPSULE PO SCH ×2 (09:37→17:26)
[2018-03-17] MEDS: LACOSAMIDE 100 MG TABLET PO SCH ×2 (09:37→22:29)
[2018-03-17] MEDS: NORMAL SALINE 10 ML SDV (SCHEDULED) IV SCH ×2 (09:38→22:29)
[2018-03-17] MEDS: TIAGABINE HCL 4 MG TABLET PO SCH ×3 (09:38→17:26)
[2018-03-17] MEDS: PROMETHAZINE HCL 25 MG TABLET PO PRN (18:11)
[2018-03-18] MEDS: HYDROMORPHONE HCL 2 MG TABLET PO PRN ×4 (00:08→17:56)
[2018-03-18] MEDS: HEPARIN SOD (PORCINE) 5,000 UNIT/ML 1 ML SYRINGE SUBCUT SCH ×2 (06:16→14:57)
[2018-03-18] MEDS: QUETIAPINE FUMARATE 100 MG TABLET PO SCH (09:12)
[2018-03-18] MEDS: LACOSAMIDE 100 MG TABLET PO SCH (09:12)
[2018-03-18] MEDS: NORMAL SALINE 10 ML SDV (SCHEDULED) IV SCH (09:12)
[2018-03-18] MEDS: LEVETIRACETAM 500 MG TABLET PO SCH (09:12)
[2018-03-18] MEDS: DOCUSATE SODIUM 100 MG CAPSULE PO SCH ×2 (09:12→17:56)
[2018-03-18] MEDS: TIAGABINE HCL 4 MG TABLET PO SCH ×3 (09:12→17:55)
[2018-03-18 16:22] VITALS: BP 90/55
--- NOTE | 2018-03-18 16:29 | PSYCHOLOGICAL NOTE ---
Psych Note - Psych Note Psych Note: Reason for Consult: depression ERNESTO ELIZONDO is a 62 year old black female patient with past medical history of migraine, hypertension and seizure disorder presents with 2 days history of nausea vomiting and abdominal pain. Impression/Plan: Patient is very soft spoken and polite. While patient appears to be orientated, she was unable to identify what state [place] is in. She disclose she knows that she lives in [place], [place] and identifies living there for the last 20 years but was unable to identify where [place] is in [facility]. Patient was unable to demonstrate higher level of thought processes and unable to illustrate understanding of safety resources (i.e. states call police if there is a fire and unable to identify the number 911). With the finding in the patient's MRI, the patient's current presentation and her evaluation today, there is concern for the patient being able to make appropriate decisions for herself. Dr. Rm will be conducting a capacity evaluation.
--- NOTE | 2018-03-18 21:05 | PDOC DISCHARGE SUMMARY ---
General - Admit/Disc Date/PCP Admission Date/Primary Care Provider: 03/13/18 15:25 Discharge Date: 03/18/18 - Discharge Diagnosis (1) Intractable nausea and vomiting Is this a current diagnosis for this admission?: Yes (2) Seizure disorder Is this a current diagnosis for this admission?: Yes (3) Hypokalemia Is this a current diagnosis for this admission?: Yes - Additional Information Resuscitation Status: Full Code Prescriptions: Omeprazole 40 mg PO DAILY #90 capsule. Home Medications: Lacosamide [Vimpat 100 mg Tablet] 100 mg PO Q12 02/11/18 Levetiracetam [Keppra 500 mg Tablet] 1,000 mg PO Q12 02/11/18 Losartan Potassium [Cozaar 100 mg Tablet] 100 mg PO DAILY 02/11/18 Quetiapine Fumarate [Seroquel] 200 mg PO Q12 02/11/18 Tiagabine HCl [Gabitril] 2 mg PO TID 02/11/18 Melatonin [Melatonin 5 mg Tablet] 5 mg PO HSP PRN 03/13/18 Acetaminophen [Tylenol 325 mg Tablet] 650 mg PO Q4HP PRN tablet 03/18/18 Omeprazole 40 mg PO DAILY #90 capsule. 03/18/18 History of Present Illness History of Present Illness: ERNESTO ELIZONDO is a 62 year old female,She was admitted on 03/13/2018 when she presented to the emergency room with 2 day history of nausea vomiting with abdominal pain, in the emergency room CT scan of chest, abdomen and pelvis was done, it was negative she was found to have hypokalemia she also had a headache , she was admitted by the [facility] Hospital Course Hospital Course: Patient was transferred from the hospitalist to my service yesterday, she was managed with IV antiemetics with opioid for pain management, MRI of the brain was done, it showed atrophy and chronic microvascular ischemic changes otherwise negative MRI. No specific diagnosis was found she has a history of chronic migraine headache, it was felt that her nausea and vomiting is from the migraine. She has a high penchant for opioid use, she kept insisting on using fentanyl to control headache, I explained to her that it is not in her best interest to use opioids for the control of chronic headache, she needed to follow with headache specialist, she used to see Dr. Karo now retired neurologist previously prescribed opioids for her. I saw her today I examined her I felt she has maximized hospital care and needed to be discharged home to follow with neurologist outpatient Physical Exam Vital Signs: Temp Pulse Resp BP Pulse Ox 98.4 F 112 H 14 90/55 L 98 03/18/18 16:00 03/18/18 16:00 03/18/18 16:00 03/18/18 16:00 03/18/18 16:00 Intake & Output 03/17/18 03/18/18 03/19/18 06:59 06:59 06:59 Intake Total 1658 238 600 Output Total 600 Balance 1058 238 600 Weight 50.1 kg 51.9 kg General appearance: PRESENT: no acute distress, thin Eye exam: PRESENT: PERRLA Respiratory exam: PRESENT: clear to auscultation madhu Cardiovascular exam: PRESENT: +S1, +S2 GI/Abdominal exam: PRESENT: soft Neurological exam: PRESENT: alert Results Laboratory Results: 03/16/18 08:53 03/16/18 08:53 Impressions: Chest X-Ray 03/12/18 19:21 IMPRESSION: NO ACUTE RADIOGRAPHIC FINDING IN THE CHEST. Head CT 03/12/18 20:39 IMPRESSION: NORMAL BRAIN CT WITHOUT CONTRAST. EVIDENCE OF ACUTE STROKE: NO. Abdomen/Pelvis CT 03/13/18 00:00 IMPRESSION: 1. No acute process identified in the chest, abdomen or pelvis. This exam was performed according to our departmental dose-optimization program, which includes automated exposure control, adjustment of the mA and/or kV according to patient size and/or use of iterative reconstruction technique. Chest CT 03/13/18 00:00 IMPRESSION: 1. No acute process identified in the chest, abdomen or pelvis. This exam was performed according to our departmental dose-optimization program, which includes automated exposure control, adjustment of the mA and/or kV according to patient size and/or use of iterative reconstruction technique. Guidance Fluoroscopy 03/14/18 00:00 IMPRESSION: SUCCESSFUL PLACEMENT OF A 5 FR DUAL LUMEN 36 CM PICC IN THE LEFT BASILIC VEIN. Interventional Vascular Procedure 03/14/18 00:00 IMPRESSION: SUCCESSFUL PLACEMENT OF A 5 FR DUAL LUMEN 36 CM PICC IN THE LEFT BASILIC VEIN. PICC Line Insertion 03/14/18 00:00 IMPRESSION: SUCCESSFUL PLACEMENT OF A 5 FR DUAL LUMEN 36 CM PICC IN THE LEFT BASILIC VEIN. Head MRI 03/17/18 00:00 IMPRESSION: ATROPHY AND CHRONIC MICRO-VASCULAR ISCHEMIC CHANGES. OTHERWISE NORMAL MRI OF THE BRAIN WITHOUT INTRAVENOUS GADOLINIUM CONTRAST. EVIDENCE OF ACUTE STROKE: NO. Qualifiers - * PATIENT BEING DISCHARGED WITH ANY OF THE FOLLOWING DIAGNOSIS: No
--- NOTE | 2018-03-20 14:24 | PSYCHOLOGICAL NOTE ---
Psych Note - Psych Note Psych Note: Adult Protective Services report has been submitted to [facility] with concerns at the patient is not or unable to care for herself. Patient was discharged prior to receiving capacity evaluation.
== END 2018-03-18 20:27 | disposition home or self-care (01) | DRG 641 ==
LOC: ER 18:17 → EH 03-13 01:59 → INTOOBSV 03-13 01:59 → OBSVTOIN 03-13 15:25 → 4W 03-13 15:45 → 5 03-13 17:00
PROVIDERS: ADMIT Internal Medicine; ATTEND Internal Medicine
PROC: 02HV33Z Insertion of Infusion Device into Superior Vena Cava, Percutaneous Approach (ICD-10-PCS; principal; 2018-03-14)
PROC: B518ZZA Fluoroscopy of Superior Vena Cava, Guidance (ICD-10-PCS; 2018-03-14)
PROC: B548ZZA Ultrasonography of Superior Vena Cava, Guidance (ICD-10-PCS; 2018-03-14)
DX: E87.6 Hypokalemia (principal); G40.909 Epilepsy, unspecified, not intractable, without status epilepticus; R11.2 Nausea with vomiting, unspecified; G43.909 Migraine, unspecified, not intractable, without status migrainosus; I10 Essential (primary) hypertension; K59.00 Constipation, unspecified; E87.1 Hypo-osmolality and hyponatremia; R63.4 Abnormal weight loss; G89.4 Chronic pain syndrome; F41.8 Other specified anxiety disorders; Z79.899 Other long term (current) drug therapy; Z88.6 Allergy status to analgesic agent; Z86.73 Personal history of transient ischemic attack (TIA), and cerebral infarction without residual deficits; Z90.49 Acquired absence of other specified parts of digestive tract; Z90.710 Acquired absence of both cervix and uterus; Z82.49 Family history of ischemic heart disease and other diseases of the circulatory system
CPT/HCPCS: 36415; 36569; 70450; 70551; 71045; 71250; 74176; 76937; 77001; 80048; 80053; 82550; 82553; 83036; 83690; 83735; 84484; 85025; 85027; 93005; 93010; 96361; 96365; 96372; 96375; 99285; G0378; J0500; J1642; J1644; J2060; J2270; J2550; J2765; J3010; J3480; J3490; J7030; S0119; S0164

== ENCOUNTER 2018-04-03 09:24 | Emergency (ER) | payer MEDICARE, MEDICAID ==
--- NOTE | 2018-04-03 10:04 | ER Document Report ---
ED Medical Screen (RME) - General Chief Complaint: Chest Pain Stated Complaint: CHEST PAIN Time Seen by Provider: 04/03/18 09:51 Notes: 62-year-old female patient comes emergency room complaining of chest pain, arm pain, right leg pain, headaches, nausea. She states much this is been hurting real bad for over a week. She was admitted on 03/13 through 03/18/2018. She was seen by psychiatry department and was supposed to have a capacity examination done prior to discharge. She was discharged before that could be done. She was discharged with a PICC line in place. She claims she continues to have diarrhea frequently just as she did on her previous had 2 admissions in January and February of this year. She is on chronic pain management. I have greeted and performed a rapid initial assessment of this patient. A comprehensive ED assessment and evaluation of the patient, analysis of test results and completion of the medical decision making process will be conducted by additional ED providers. TRAVEL OUTSIDE OF THE [place] IN LAST 30 DAYS: No - Related Data Allergies/Adverse Reactions: butorphanol [From Stadol] Allergy (Verified 03/13/18 11:42) DIFFICULT BREATHING, TONGUE SWELLING NSAIDS (Non-Steroidal Anti-Inflamma Allergy (Verified 03/13/18 11:42) DIFFICULT BREATHING pregabalin [From Lyrica] Allergy (Verified 03/13/18 11:42) TONGUE SWELLING Past Medical History - Social History Chew tobacco use (# tins/day): No Frequency of alcohol use: None Drug Abuse: None - Past Medical History Cardiac Medical History: Reports: Hx Hypertension Neurological Medical History: Reports: Hx Migraine, Hx Seizures Renal/ Medical History: Denies: Hx Peritoneal Dialysis Psychiatric Medical History: Denies: Hx Depression Past Surgical History: Reports: Hx Abdominal Surgery - Immunizations History of Influenza Vaccine for 06/2017 - 11/2017 Season: No Physical Exam - Vital signs Vitals: Temp Pulse Resp BP Pulse Ox 98.5 F 133 H 22 H 135/99 H 100 04/03/18 09:37 04/03/18 09:37 04/03/18 09:37 04/03/18 09:37 04/03/18 09:37 Course - Vital Signs Vital signs: Temp Pulse Resp BP Pulse Ox 98.5 F 133 H 22 H 135/99 H 100 04/03/18 09:37 04/03/18 09:37 04/03/18 09:37 04/03/18 09:37 04/03/18 09:37
[2018-04-03] MEDS ORDERED: NORMAL SALINE 1000 ML 500 ML IV ONE (10:34)
[2018-04-03] MEDS ORDERED: NORMAL SALINE 1000 ML 1,000 ML IV ONE (11:32)
[2018-04-03] MEDS ORDERED: PROMETHAZINE HCL 25 MG TABLET PO ONE (11:34)
[2018-04-03] MEDS ORDERED: HEPARIN SOD (PORCINE) 1 UNIT/ML PF 3 ML SYRINGE IV PRN (11:36)
--- NOTE | 2018-04-03 11:46 | RADIOLOGY REPORT (SQ) ---
EXAM DESCRIPTION: CHEST SINGLE VIEW COMPLETED DATE/TIME: 04/03/2018 11:23 am REASON FOR STUDY: Chest pain COMPARISON: 03/12/2018 EXAM PARAMETERS: NUMBER OF VIEWS: One view. TECHNIQUE: Single frontal radiographic view of the chest acquired. RADIATION DOSE: NA LIMITATIONS: None. FINDINGS: LUNGS AND PLEURA: No opacities, masses or pneumothorax. No pleural effusion. MEDIASTINUM AND HILAR STRUCTURES: No masses. Contour normal. HEART AND VASCULAR STRUCTURES: Heart normal in size. Normal vasculature. BONES: No acute findings. HARDWARE: None in the chest. OTHER: No other significant finding. IMPRESSION: NO ACUTE RADIOGRAPHIC FINDING IN THE CHEST. TECHNICAL DOCUMENTATION: JOB ID: [id number] [employer]- All Rights Reserved Reading location - IP/workstation name: [email or web address]
[2018-04-03] MEDS ORDERED: NORMAL SALINE 10 ML SDV (AFTER EACH USE) IV PRN (12:01)
[2018-04-03 13:09] LABS: ABSOLUTE BASOPHILS # (AUTO) 0.1 10^3/uL (0.0-0.2); ABSOLUTE LYMPHOCYTES (AUTO) 1.4 10^3/uL (0.5-4.7); ABSOLUTE MONOCYTES (AUTO) 0.4 10^3/uL (0.1-1.4); ABSOLUTE NEUT (AUTO) 3.1 10^3/uL (1.7-8.2); BASOPHILS % (AUTO) 1.2 % (0-2); EOSINOPHILS % (AUTO) 0.6 % (0-6); HEMATOCRIT 34.8 % (36.0-47.0); HEMOGLOBIN 12.3 g/dL (12.0-15.5); LYMPHOCYTES % (AUTO) 28.3 % (13-45); MEAN CORPUSCULAR HEMOGLOBIN 28.9 pg (27.0-33.4); MEAN CORPUSCULAR HGB CONC 35.5 g/dL (32.0-36.0); MEAN CORPUSCULAR VOLUME 81 fl (80-97); MONOCYTES % (AUTO) 8.7 % (3-13); PLATELET COUNT 283 10^3/uL (150-450); RED BLOOD COUNT 4.27 10^6/uL (3.72-5.28); RED CELL DISTRIBUTION WIDTH 15.2 % (11.5-14.0); SEGMENTED NEUTROPHILS % (AUTO) 61.2 % (42-78); TOTAL CELLS COUNTED % (AUTO) 100 %
[2018-04-03 13:13] LABS: ALANINE AMINOTRANSFERASE 13 U/L (9-52); ALBUMIN 3.8 g/dL (3.5-5.0); ALKALINE PHOSPHATASE 64 U/L (38-126); ANION GAP 12 (5-19); ASPARTATE AMINO TRANSFERASE 18 U/L (14-36); BILIRUBIN,DIRECT 0.4 mg/dL (0.0-0.4); BILIRUBIN,TOTAL 0.7 mg/dL (0.2-1.3); BLOOD UREA NITROGEN 15 mg/dL (7-20); CALCIUM 9.8 mg/dL (8.4-10.2); CARBON DIOXIDE 22 mmol/L (22-30); CHLORIDE 113 mmol/L (98-107); CREATINE KINASE 31 U/L (30-135); GLUCOSE 95 mg/dL (75-110); POTASSIUM 3.3 mmol/L (3.6-5.0); SODIUM 147.2 mmol/L (137-145); TOTAL PROTEIN 6.8 g/dL (6.3-8.2)
--- NOTE | 2018-04-03 13:27 | EKG REPORT ---
SEVERITY:- ABNORMAL ECG - SINUS TACHYCARDIA NONSPECIFIC REPOL ABNORMALITY, DIFFUSE LEADS : Confirmed by: Roman Diego MD 03-Apr-2018 13:26:54
[2018-04-03] MEDS ORDERED: POTASSIUM CHLORIDE 10 MEQ CAPSULE.ER PO ONE (13:53)
--- NOTE | 2018-04-03 14:27 | RADIOLOGY REPORT (SQ) ---
EXAM DESCRIPTION: CTA CHEST COMPLETED DATE/TIME: 04/03/2018 2:06 pm REASON FOR STUDY: cp, tachycardia, recent hospitalization chest pain COMPARISON: AP chest 04/03/2018 CT chest 03/12/2018 AP chest 03/12/2018 TECHNIQUE: CT scan of the chest performed using helical scanning technique with dynamic intravenous contrast injection. Images reviewed with lung, soft tissue and bone windows. Reconstructed coronal and sagittal MPR images reviewed. Additional 3 dimensional post-processing performed to develop Maximal Intensity Projection images (AZ P). All images stored on PACS. All CT scanners at this facility use dose modulation, iterative reconstruction, and/or weight based d osing when appropriate to reduce radiation dose to as low as reasonably achievable (ALARA). [facility]: Dose Right [facility]: CareDose [facility]: Dose Right [facility]: Teradose 4D [facility]: [facility] Nation CONTRAST TYPE AND DOSE: contrast/concentration: Isovue 370.00 mg/ml; Total Contrast Delivered: 55.0 ml; Total Saline Delivered: 93.5 ml Contrast bolus is adequate for pulmonary arteries and thoracic aorta RENAL FUNCTION: Creatinine 0.85 RADIATION DOSE: CT Rad equipment meets quality standard of care and radiation dose reduction techniq ues were employed. CTDIvol: 9.9 - 14.3 mGy. DLP: 500 mGy-cm. . LIMITATIONS: None. FINDINGS: LUNGS AND PLEURA: Minimal bandlike atelectasis in the superior segment left lower lobe. No fluffy alveolar infiltrates worrisome for edema or pneumonia. Enlarged airspaces in the bilateral upper lobes from underlying obstructive lung disease. No pneumothorax. No pleural effusion. AORTA AND GREAT VESSELS: No thoracic aortic aneurysm. No thoracic aortic dissection. HEART: Trace pericardial effusion, similar compared to 03/13/2018 No significant coronary artery calci fications. PULMONARY ARTERIES: No emboli visualized in the main pulmonary arteries or the segmental branches. HILAR AND MEDIASTINAL STRUCTURES: No identified masses or abnormal nodes. HARDWARE: Surgical clips at the GE junction. Bony changes from remote prior thoracotomy. UPPER ABDOMEN: Post cholecystectomy THYROID AND OTHER SOFT TISSUES: No masses. No adenopathy. BONES: Old left thoracotomy defect. Bony structures otherwise unremarkable 3D MIPS: Confirm above findings. OTHER: No other significant finding. IMPRESSION: No CT angio evidence of acute pulmonary emboli or thoracic aortic dissection Physical bandlike atelectasis superior segment left lower lobe similar compared to 03/13/[address] . Obstructive lung disease COMMENT: Quality ID # [id number]: Final reports with documentation of one or more dose reduction techniques (e.g., Automated exposure control, adjustment of the mA and/or kV according to patient size, use of iterative reconstruction technique) TECHNICAL DOCUMENTATION: JOB ID: [id number] [employer]- All Rights Reserved Reading location - IP/workstation name: [email or web address]
[2018-04-03 14:51] LABS: APPEARANCE,URINE SLIGHTLY-CLOUDY; BILIRUBIN,URINE NEGATIVE (NEGATIVE); CALCIUM OXALATE CRYSTALS,URINE RARE /HPF; COLOR,URINE YELLOW; GLUCOSE, URINE NEGATIVE (NEGATIVE); KETONES,URINE NEGATIVE (NEGATIVE); LEUKOCYTE ESTERASE,URINE SMALL (NEGATIVE); NITRITE,URINE NEGATIVE (NEGATIVE); PROTEIN,URINE 30 mg/dL (NEGATIVE); URINE SPECIFIC GRAVITY 1.034; UROBILINOGEN,URINE NEGATIVE mg/dL (<2.0)
[2018-04-03 15:04] LABS: URINE AMPHETAMINES SCREEN NEGATIVE; URINE BARBITURATES SCREEN NEGATIVE; URINE BENZODIAZEPINES SCREEN NEGATIVE; URINE COCAINE SCREEN NEGATIVE; URINE MARIJUANA (THC) SCREEN NEGATIVE; URINE METHADONE SCREEN NEGATIVE; URINE PHENCYCLIDINE SCREEN NEGATIVE
[2018-04-03] MEDS ORDERED: CEFTRIAXONE INJ 1000 MG VIAL IV ONE (15:05)
--- NOTE | 2018-04-03 15:30 | ER Document Report ---
ED General - General Chief Complaint: Chest Pain Stated Complaint: CHEST PAIN Time Seen by Provider: 04/03/18 09:51 Mode of Arrival: Ambulatory Information source: Patient Notes: Patient is a 62-year-old female who presents to the ER today for chest pain, bilateral leg pain, abdominal pain, headache. Patient has a history of chronic pain syndrome. Patient is admitted to the hospital March 12 for nausea and vomiting, discharged without any specific findings after multiple tests were done on similar complaints that she presents with today. Patient gets oral Dilaudid and Nucynta monthly from her primary care provider in [place]. Patient states that she has lost 45 pounds since the beginning of the year. Patient cannot really tell me anything more specific than diffuse pain. TRAVEL OUTSIDE OF THE [place] IN LAST 30 DAYS: No - Related Data Allergies/Adverse Reactions: butorphanol [From Stadol] Allergy (Verified 03/13/18 11:42) DIFFICULT BREATHING, TONGUE SWELLING NSAIDS (Non-Steroidal Anti-Inflamma Allergy (Verified 03/13/18 11:42) DIFFICULT BREATHING pregabalin [From Lyrica] Allergy (Verified 03/13/18 11:42) TONGUE SWELLING Past Medical History - General Information source: Patient - Social History Smoking Status: Never Smoker Chew tobacco use (# tins/day): No Frequency of alcohol use: None Drug Abuse: None Family History: Reviewed & Not Pertinent, Hypertension Patient has suicidal ideation: No Patient has homicidal ideation: No - Past Medical History Cardiac Medical History: Reports: Hx Hypertension Neurological Medical History: Reports: Hx Migraine, Hx Seizures Renal/ Medical History: Denies: Hx Peritoneal Dialysis Psychiatric Medical History: Denies: Hx Depression Past Surgical History: Reports: Hx Abdominal Surgery Review of Systems - Review of Systems Constitutional: No symptoms reported EENT: No symptoms reported Cardiovascular: No symptoms reported Respiratory: No symptoms reported Gastrointestinal: See HPI Genitourinary: No symptoms reported Female Genitourinary: No symptoms reported Musculoskeletal: See HPI Skin: No symptoms reported Hematologic/Lymphatic: No symptoms reported Neurological/Psychological: No symptoms reported Physical Exam - Vital signs Vitals: Temp Pulse Resp BP Pulse Ox 98.5 F 133 H 22 H 135/99 H 100 04/03/18 09:37 04/03/18 09:37 04/03/18 09:37 04/03/18 09:37 04/03/18 09:37 - Notes Notes: PHYSICAL EXAMINATION: GENERAL: Cachectic, chronically ill-appearing, but in no acute distress. HEAD: Atraumatic, normocephalic. EYES: Pupils equal round and reactive to light, extraocular movements intact, sclera anicteric, conjunctiva are normal. ENT: Airway patent NECK: Normal range of motion, supple without lymphadenopathy LUNGS: CTAB and equal. No wheezes rales or rhonchi. HEART: Regular rate and rhythm without murmurs ABDOMEN: Soft, mild diffuse tenderness. No guarding, no rebound BACK: no vertebral tenderness, normal ROM GI/: no CVA tenderness EXTREMITIES: Normal range of motion, no pitting edema. No cyanosis. NEUROLOGICAL: Cranial nerves grossly intact. Normal sensory/motor exams. PSYCH: Normal mood, normal affect. SKIN: Warm, Dry, normal turgor, no rashes or lesions noted Course - Re-evaluation Re-evalutation: 04/03/18 14:26 Patient comes into the emergency department tachycardic at 133 bpm. This resolved after some fluids and patient was lying in the bed for a little while. Patient had a negative workup today except for some bacteria on her urinalysis that I will treat. Patient continues to ask if she is being admitted and if she can have some Dilaudid for pain. Patient states that she has no pain medications at home. I did pull up her record on the [place] controlled substance website which shows that she got Nucynta filled on March 19 and should have some left as well as Dilaudid on March 19 although she only received 8 pills of that and may be out of that. Patient lied to me and told me that she has not gotten anything filled since before she was admitted. Patient changed her story after I printed this for her and showed her that I have a record of when she goes to the pharmacy and gets narcotics. Patient then states "well I do not have any left, but I need some." I did advise her to follow-up with her primary care provider. Patient got out of the bed multiple times when we asked her not to and family continued to her process about admitting her. I did advise that I have no reason to admit her today. She has had no vomiting at all here in the emergency department. CTA was performed due to her tachycardia, but was negative for any acute pathology including PE. Chest x-ray was performed before that and negative for any acute pathology. We will send patient home on antibiotics for her urinary tract infection. Her tachycardia has improved significantly, down to 100 bpm on discharge. I did consult with my attending, Dr. Bliss, on this case who agrees with discharge at this time. 04/04/18 10:29 04/04/18 10:29 - Vital Signs Vital signs: Temp Pulse Resp BP Pulse Ox 98.8 F 102 H 20 139/94 H 99 04/03/18 16:15 04/03/18 16:15 04/03/18 16:15 04/03/18 16:15 04/03/18 16:15 - Laboratory Result Diagrams: 04/03/18 12:28 04/03/18 12:28 Laboratory results interpreted by me: 04/03/18 04/03/18 04/03/18 12:28 12:28 14:16 Hct 34.8 L RDW 15.2 H Sodium 147.2 H Potassium 3.3 L Chloride 113 H Urine Protein 30 H Ur Leukocyte Esterase SMALL H Discharge - Discharge Clinical Impression: Undernutrition, Chronic pain syndrome UTI (urinary tract infection) Qualifiers: Urinary tract infection type: acute cystitis Hematuria presence: without hematuria Qualified Code(s): N30.00 - Acute cystitis without hematuria Condition: Stable Disposition: HOME, SELF-CARE Instructions: Cephalexin ([facility]), Urinary Tract Infection ([facility]) Additional Instructions: Return immediately for any new or worsening symptoms. Follow up with primary care provider, call tomorrow to make followup appointment. Prescriptions: Cephalexin Monohydrate [Keflex 500 mg Capsule] 500 mg PO BID 7 Days #14 capsule Promethazine HCl [Phenergan 25 mg Tablet] 1 - 2 tab PO Q6H PRN #15 tablet PRN Reason: Referrals: MANI DOSHI MD [ACTIVE STAFF] - Follow up as needed
[2018-04-03 16:36] VITALS: BP 139/94
[2018-04-03] MEDS ORDERED: NORMAL SALINE 10 ML SDV (SCHEDULED) IV SCH (22:00)
== END 2018-04-03 16:30 | disposition home or self-care (01) ==
LOC: ER 09:24
DX: N30.00 Acute cystitis without hematuria (principal); G89.4 Chronic pain syndrome; E46 Unspecified protein-calorie malnutrition; R07.9 Chest pain, unspecified; M79.604 Pain in right leg; M79.605 Pain in left leg; R10.9 Unspecified abdominal pain; R51 Headache; R00.0 Tachycardia, unspecified; Z79.899 Other long term (current) drug therapy; I10 Essential (primary) hypertension
CPT/HCPCS: 93005; 99285; 96361; 96365; 36415; 87045; 87086; 89055; 87205; 82550; 85025; 80053; 81001; 84484; 80307; 87493; 71045; 71275; 93010; A9270; J0696; J7030; J1642

== ENCOUNTER 2018-07-16 09:59 | Emergency (ER) | payer MEDICARE, MEDICAID ==
[2018-07-16] MEDS ORDERED: FENTANYL CITRATE INJ/PF 100 MCG/2 ML AMPUL IV ONE (10:21)
[2018-07-16] MEDS ORDERED: NORMAL SALINE 1000 ML 1,000 ML IV ONE (10:21)
[2018-07-16] MEDS ORDERED: METOCLOPRAMIDE HCL ORAL SOLN 10 MG/10 ML UDCUP PO ONE (10:21)
[2018-07-16] MEDS ORDERED: ONDANSETRON 4 MG TAB.RAPDIS PO ONE (10:22)
[2018-07-16] MEDS ORDERED: DICYCLOMINE HCL INJ 20 MG/2 ML AMPULE IM ONE (10:23)
--- NOTE | 2018-07-16 10:24 | ER Document Report ---
ED Medical Screen (RME) - General Chief Complaint: Chest Pain Stated Complaint: CHEST PAIN Time Seen by Provider: 07/16/18 10:20 Notes: 62 years old female with a history of taking Dilaudid 4 mg, last dose was last Saturday presents with withdrawal symptoms of generalized body aches and pain fever is chills, abdominal pain and cramps as well as chest pain nauseous and vomited many times. She has been taking Dilaudid for so-called migraines TRAVEL OUTSIDE OF THE [place] IN LAST 30 DAYS: No - Related Data Allergies/Adverse Reactions: butorphanol [From Stadol] Allergy (Verified 07/16/18 10:00) DIFFICULT BREATHING, TONGUE SWELLING NSAIDS (Non-Steroidal Anti-Inflamma Allergy (Verified 07/16/18 10:00) DIFFICULT BREATHING pregabalin [From Lyrica] Allergy (Verified 07/16/18 10:00) TONGUE SWELLING Past Medical History - Social History Drug Abuse: None - Past Medical History Cardiac Medical History: Reports: Hx Hypertension Neurological Medical History: Reports: Hx Migraine, Hx Seizures Renal/ Medical History: Denies: Hx Peritoneal Dialysis Psychiatric Medical History: Denies: Hx Depression Past Surgical History: Reports: Hx Abdominal Surgery - Immunizations History of Influenza Vaccine for 06/2017 - 11/2017 Season: No Physical Exam - Vital signs Vitals: Temp Pulse Resp BP Pulse Ox 98.8 F 129 H 24 H 154/115 H 100 07/16/18 10:15 07/16/18 10:15 07/16/18 10:15 07/16/18 10:15 07/16/18 10:15 Course - Vital Signs Vital signs: Temp Pulse Resp BP Pulse Ox 98.8 F 129 H 24 H 154/115 H 100 07/16/18 10:15 07/16/18 10:15 07/16/18 10:15 07/16/18 10:15 07/16/18 10:15
[2018-07-16] MEDS ORDERED: ONDANSETRON HCL INJ/PF 4 MG/2 ML SDV ONE (10:56)
[2018-07-16] MEDS ORDERED: ONDANSETRON HCL INJ/PF 4 MG/2 ML SDV IV ONE ×2 (11:54→14:50)
[2018-07-16] MEDS ORDERED: HYDROMORPHONE HCL INJ/PF 2 MG/ML AMPULE IV ONE ×3 (11:54→14:49)
--- NOTE | 2018-07-16 11:57 | ER Document Report ---
ED General - General Chief Complaint: Chest Pain Stated Complaint: CHEST PAIN Time Seen by Provider: 07/16/18 10:20 Mode of Arrival: Ambulatory Information source: Patient Notes: This is a 62-year-old woman with a history of seizures, migraines, chronic pain syndrome, hypertension, insomnia who presents to the emergency room with persistent headaches, chest pain with movement, shortness of breath, nausea and vomiting. Patient states her symptoms have been going on for the past week. Patient denies fever, photophobia, neck stiffness. TRAVEL OUTSIDE OF THE [place] IN LAST 30 DAYS: No - HPI Onset: Last week Onset/Duration: Gradual Quality of pain: Dull Severity: Moderate Pain Level: 3 Associated symptoms: Chest pain, Nausea, Vomiting, Other - Abdominal pain. denies: Shortness of breath Exacerbated by: Denies Relieved by: Denies Similar symptoms previously: Yes Recently seen / treated by doctor: Yes - Related Data Allergies/Adverse Reactions: butorphanol [From Stadol] Allergy (Verified 07/16/18 10:00) DIFFICULT BREATHING, TONGUE SWELLING NSAIDS (Non-Steroidal Anti-Inflamma Allergy (Verified 07/16/18 10:00) DIFFICULT BREATHING pregabalin [From Lyrica] Allergy (Verified 07/16/18 10:00) TONGUE SWELLING Past Medical History - General Information source: Patient - Social History Smoking Status: Never Smoker Cigarette use (# per day): No Chew tobacco use (# tins/day): No Drug Abuse: None Lives with: Family Family History: Reviewed & Not Pertinent, Hypertension Patient has suicidal ideation: No Patient has homicidal ideation: No - Past Medical History Cardiac Medical History: Reports: Hx Hypertension Neurological Medical History: Reports: Hx Migraine, Hx Seizures Renal/ Medical History: Denies: Hx Peritoneal Dialysis Psychiatric Medical History: Denies: Hx Depression Past Surgical History: Reports: Hx Abdominal Surgery - hernia repair Review of Systems - Review of Systems Constitutional: denies: Chills, Fever EENT: No symptoms reported Cardiovascular: Palpitations. denies: Chest pain Respiratory: Cough. denies: Short of breath, Wheezing Gastrointestinal: Abdominal pain, Nausea, Vomiting Genitourinary: No symptoms reported Female Genitourinary: No symptoms reported Musculoskeletal: No symptoms reported Skin: No symptoms reported Hematologic/Lymphatic: No symptoms reported Neurological/Psychological: No symptoms reported Physical Exam - Vital signs Vitals: Temp Pulse Resp BP Pulse Ox 98.8 F 129 H 24 H 154/115 H 100 07/16/18 10:15 07/16/18 10:15 07/16/18 10:15 07/16/18 10:15 07/16/18 10:15 Notes: Physical exam: GENERAL: Patient is alert and oriented to person place and time. She is conversant and in no acute distress just having given IV pain medicine. HEAD: Atraumatic, normocephalic. EYES: Pupils equal round and reactive to light, extraocular movements intact, sclera anicteric, conjunctiva are normal. ENT: TMs normal, nares patent, oropharynx clear without exudates. Moist mucous membranes. NECK: Normal range of motion, supple without obvious mass or JVD. LUNGS: Breath sounds clear to auscultation bilaterally and equal. No wheezes rales or rhonchi. HEART: Regular rate and rhythm without murmurs, rubs or gallops. ABDOMEN: Soft, normoactive bowel sounds. No tenderness to palpation. No guarding, no rebound. No masses appreciated. EXTREMITIES: Normal range of motion, no pitting or edema. No clubbing or cyanosis. NEUROLOGICAL: Cranial nerves II through XII grossly intact. Normal speech, moving all extremities. PSYCH: Normal mood, normal affect. SKIN: Warm, Dry, normal turgor, no rashes or lesions noted. Course - Vital Signs Vital signs: Temp Pulse Resp BP Pulse Ox 98.6 F 129 H 18 129/114 H 98 07/16/18 16:01 07/16/18 10:15 07/16/18 16:01 07/16/18 16:01 07/16/18 16:01 - Laboratory Result Diagrams: 07/16/18 11:53 07/16/18 11:53 Laboratory results interpreted by me: 07/16/18 07/16/18 07/16/18 11:53 11:53 12:08 RDW 15.4 H Seg Neutrophils % 88.5 H Lymphocytes % 6.1 L Absolute Lymphocytes 0.4 L Potassium 3.5 L Est GFR (Non-Af Amer) 57 L Glucose 141 H Urine Protein 30 H Urine Ketones 20 H Urine Urobilinogen 2.0 H Ur Leukocyte Esterase SMALL H - Diagnostic Test Radiology reviewed: Image reviewed, Reports reviewed - Chest x-ray shows no infiltrates. Abdominal films show mild fecal impaction. - EKG Interpretation by Md Rate: Tachycardia - EKG shows sinus tachycardia with a ventricular rate of 119, no acute ST-T wave changes Discharge - Discharge Clinical Impression: Chest wall pain, Vomiting with nausea, UTI Condition: Stable Disposition: HOME, SELF-CARE Instructions: Chest Wall Pain ([facility]), Oral Narcotic Medication ([facility]), Reflux Disease (GERD) ([facility]) Additional Instructions: Recommendations: Rest, drink plenty of fluids, take pain medicines as needed. Take the antibiotics as prescribed for UTI. Take the Phenergan for nausea as prescribed. Take the omeprazole for the symptoms of reflux. I do want you to follow-up with Dr. Doshi in the pain clinic as well as finding a primary care doctor: [facility] has a family medicine clinic in town: [address] [place] [address] [address] [place] [address] The pain medicine you're taking prescribed as a narcotic. There are several important things you should know about this medicine: 1. Taking narcotics for too long can lead to physical and mental dependence. Take this medicine only if really needed and in the lowest quantity to achieve pain relief. 2. Do not drink alcohol while on this medicine. Alcohol interacts with narcotics and the combination can be dangerous. 3. Do not drive or operate machinery while on this medicine. 4. Narcotics do cause constipation, so drink plenty of fluids and daily stool softeners. Prescriptions: Cephalexin Monohydrate [Keflex 500 mg Capsule] 500 mg PO Q6H 5 Days capsule Hydromorphone HCl [Dilaudid 2 Mg Tablet] 2 mg PO Q6H PRN #30 tablet PRN Reason: for pain Hydromorphone HCl [Dilaudid 2 Mg Tablet] 2 mg PO Q6H PRN #30 tablet PRN Reason: for pain Omeprazole 20 mg PO DAILY #30 tablet. Promethazine HCl [Phenergan 25 mg Supp.rect] 1 supp CO Q6H #12 supp.rect
--- NOTE | 2018-07-16 12:05 | RADIOLOGY REPORT (SQ) ---
EXAM DESCRIPTION: ACUTE ABDOMEN SERIES COMPLETED DATE/TIME: 07/16/2018 11:28 am REASON FOR STUDY: Abdominal pain COMPARISON: None. NUMBER OF VIEWS: Three views. TECHNIQUE: Frontal chest, supine abdomen and upright/decubitus abdomen radiographic images acquired. LIMITATIONS: None. FINDINGS: CHEST: Lungs clear of infiltrates. FREE AIR: None. No abnormal gas collections. BOWEL GAS PATTERN: Abundant fecal material throughout nondilated colon. CALCIFICATIONS: Numerous vascular calcifications. No definite urinary tract stones. HARDWARE: Clips right upper quadrant. SOFT TISSUES: No gross mass or suggestion of organomegaly. BONES: No acute fracture. No worrisome bone lesions. OTHER: No other significant finding. IMPRESSION: Mild fecal retention. TECHNICAL DOCUMENTATION: JOB ID: [id number] [employer]- All Rights Reserved Reading location - IP/workstation name: [email or web address]
[2018-07-16 12:14] LABS: ABSOLUTE LYMPHOCYTES (AUTO) 0.4 10^3/uL (0.5-4.7); ABSOLUTE MONOCYTES (AUTO) 0.3 10^3/uL (0.1-1.4); ABSOLUTE NEUT (AUTO) 5.3 10^3/uL (1.7-8.2); BASOPHILS % (AUTO) 0.3 % (0-2); HEMATOCRIT 37.9 % (36.0-47.0); HEMOGLOBIN 13.7 g/dL (12.0-15.5); LYMPHOCYTES % (AUTO) 6.1 % (13-45); MEAN CORPUSCULAR HEMOGLOBIN 29.1 pg (27.0-33.4); MEAN CORPUSCULAR VOLUME 81 fl (80-97); MONOCYTES % (AUTO) 5.1 % (3-13); PLATELET COUNT 252 10^3/uL (150-450); RED CELL DISTRIBUTION WIDTH 15.4 % (11.5-14.0); SEGMENTED NEUTROPHILS % (AUTO) 88.5 % (42-78); TOTAL CELLS COUNTED % (AUTO) 100 %
[2018-07-16] MEDS ORDERED: PROMETHAZINE HCL 25 MG SUPP.RECT PR ONE (12:28)
[2018-07-16] MEDS ORDERED: LABETALOL HCL INJ 20 MG/4 ML DISP.SYRIN IV ONE (12:28)
[2018-07-16 12:31] LABS: APPEARANCE,URINE CLOUDY; BILIRUBIN,URINE NEGATIVE (NEGATIVE); CALCIUM OXALATE CRYSTALS,URINE MANY /HPF; GLUCOSE, URINE NEGATIVE (NEGATIVE); KETONES,URINE 20 mg/dL (NEGATIVE); LEUKOCYTE ESTERASE,URINE SMALL (NEGATIVE); NITRITE,URINE NEGATIVE (NEGATIVE); PROTEIN,URINE 30 mg/dL (NEGATIVE); URINE SPECIFIC GRAVITY 1.017
[2018-07-16 12:32] LABS: COLOR,URINE YELLOW
[2018-07-16 12:39] LABS: ALANINE AMINOTRANSFERASE 12 U/L (9-52); ALBUMIN 4.6 g/dL (3.5-5.0); ALKALINE PHOSPHATASE 70 U/L (38-126); ANION GAP 13 (5-19); ANISOCYTOSIS SLIGHT; ASPARTATE AMINO TRANSFERASE 20 U/L (14-36); BILIRUBIN,DIRECT 0.4 mg/dL (0.0-0.4); BILIRUBIN,TOTAL 1.2 mg/dL (0.2-1.3); BLOOD UREA NITROGEN 15 mg/dL (7-20); CALCIUM 9.8 mg/dL (8.4-10.2); CARBON DIOXIDE 22 mmol/L (22-30); CHLORIDE 105 mmol/L (98-107); CREATINE KINASE 66 U/L (30-135); GLUCOSE 141 mg/dL (75-110); LIPASE 38.4 U/L (23-300); POIKILOCYTOSIS SLIGHT; POTASSIUM 3.5 mmol/L (3.6-5.0); SODIUM 139.9 mmol/L (137-145)
[2018-07-16 12:40] LABS: PLATELET COMMENT ADEQUATE; TARGET CELLS 1+; TEAR DROP CELLS SLIGHT
[2018-07-16 12:50] LABS: TROPONIN I < 0.012 ng/mL
--- NOTE | 2018-07-16 12:57 | EKG REPORT ---
SEVERITY:- ABNORMAL ECG - SINUS TACHYCARDIA PROBABLE LEFT ATRIAL ABNORMALITY LVH WITH SECONDARY REPOLARIZATION ABNORMALITY NEW T INVERSIONS INFEROLATERAL LEADS, CLINICAL CORRELATION NEEDED. : Confirmed by: Roman Diego MD 16-Jul-2018 12:56:43
[2018-07-16 16:05] VITALS: BP 129/114
== END 2018-07-16 16:13 | disposition home or self-care (01) ==
LOC: ER 09:59
DX: R07.89 Other chest pain (principal); N39.0 Urinary tract infection, site not specified; R11.2 Nausea with vomiting, unspecified; R51 Headache; R10.9 Unspecified abdominal pain; R00.2 Palpitations; R05 Cough; I10 Essential (primary) hypertension
CPT/HCPCS: 93005; 96376; 99285; 96372; 96361; 96374; 96375; 36415; 82553; 82550; 83690; 85025; 80053; 81001; 84484; 74022; 93010; J0500; J3010; J3490; J1170; A9270; J2405; J7030